=== PATIENT | male | born 1935 | race Caucasian/White ===

== ENCOUNTER 2017-05-12 06:39 | Emergency (ER) | payer MEDICARE, BC ==
[2017-05-12 07:02] VITALS: BP 173/84
[2017-05-12] MEDS ORDERED: Aspirin 81 MG Tab.Chew PO ONE (07:40)
[2017-05-12] MEDS ORDERED: Ondansetron 4 MG Tab.DIS PO ONE (07:43)
--- NOTE | 2017-05-12 07:44 | EDM.PDOC ---
ED HPI GENERAL MEDICAL PROBLEM - General Chief Complaint: Chest Pain Stated Complaint: STATES HE IS HAVING CHEST PAIN Time Seen by Provider: 05/12/17 07:36 Source of Information: Reports: Patient, Family, RN Notes Reviewed History Limitations: Reports: Physical Impairment - History of Present Illness INITIAL COMMENTS - FREE TEXT/NARRATIVE: 81-year-old gentleman presents emergency department today complaint of chest pain, he does have a history of Alzheimer's dementia difficult to obtain history from him discussing with the family they believe he was complaining of chest pain earlier this evening around 1:00 then went back to sleep again chest pain around 5 this morning he does feel nauseated no shortness of breath or diaphoresis - Related Data Allergies Allergy/AdvReac Type Severity Reaction Status Date / Time hydrocodone AdvReac Swelling Verified 05/12/17 07:05 Home Meds: Home Meds Digoxin 0.25 mg PO DAILY 09/08/13 [History] Pravastatin [Pravachol] 20 mg PO DAILY 09/08/13 [History] levETIRAcetam [Keppra] 500 mg PO BID 09/08/13 [History] Donepezil [Aricept] 5 mg PO BEDTIME 09/06/15 [History] Tamsulosin [Flomax] 0.4 mg PO BEDTIME 09/06/15 [History] Aspirin [Halfprin] 81 mg PO DAILY 02/12/16 [History] Loratadine 10 mg PO DAILY 05/12/17 [History] risperiDONE 0.5 mg PO BID PRN 05/12/17 [History] traZODone 200 mg PO BEDTIME 05/12/17 [History] Past Medical History HEENT History: Reports: Allergic Rhinitis Cardiovascular History: Reports: Arrhythmia, Pacemaker, Other (See Below) Other Cardiovascular History: high triglycerides Genitourinary History: Reports: Prostate Disorder Musculoskeletal History: Reports: Fracture Neurological History: Reports: Alzheimers Disease, Seizure Psychiatric History: Reports: Alzheimers Disease, Dementia Endocrine/Metabolic History: Reports: Diabetes, Type II Oncologic (Cancer) History: Reports: Other (See Below) Other Oncologic History: precancerous skin cells - Infectious Disease History Infectious Disease History: Reports: Chicken Pox, Measles, Mumps - Past Surgical History Cardiovascular Surgical History: Reports: Pacer Social & Family History - Tobacco Use Smoking Status *Q: Never Smoker Years of Tobacco use: 30 Used Tobacco, but Quit: Yes Month Tobacco Last Used: 1983 Second Hand Smoke Exposure: No - Caffeine Use Caffeine Use: Reports: None - Alcohol Use Days Per Week of Alcohol Use: 4 Number of Drinks Per Day: 1 Total Drinks Per Week: 4 - Recreational Drug Use Recreational Drug Use: No ED ROS GENERAL - Review of Systems Review Of Systems: Unable To Obtain ED EXAM, GENERAL - Physical Exam Exam: See Below Exam Limited By: Physical Impairment General Appearance: Alert, No Apparent Distress Head: Atraumatic, Normocephalic Neck: Normal Inspection, Supple, Non-Tender, Full Range of Motion Respiratory/Chest: No Respiratory Distress, Lungs Clear, Normal Breath Sounds, No Accessory Muscle Use Cardiovascular: Regular Rate, Rhythm, No Murmur GI/Abdominal: Soft, Non-Tender Extremities: No Pedal Edema Course - Vital Signs Last Recorded V/S: Last Vital Signs Temp 95.2 F L 05/12/17 07:00 Pulse 84 05/12/17 07:00 Resp 15 05/12/17 07:00 BP 173/84 H 05/12/17 07:00 Pulse Ox 96 05/12/17 07:00 - Orders/Labs/Meds Orders: Active Orders 24 hr Category Date Time Status Cardiac Monitoring [RC] .As Directed Care 05/12/17 07:40 Active EKG Documentation Completion [RC] ASDIRECTED Care 05/12/17 07:37 Active EKG 12 Lead [EK] Routine Ther 05/12/17 07:37 Ordered Labs: Laboratory Tests 05/12/17 05/12/17 05/12/17 Range/Units 07:46 07:46 07:46 WBC 5.7 (4.5-11.0) K/uL RBC 4.52 (4.30-5.90) M/uL Hgb 13.6 (12.0-15.0) g/dL Hct 39.0 L (40.0-54.0) % MCV 86 (80-98) fL MCH 30 (27-31) pg MCHC 35 (32-36) % Plt Count 103 L (150-400) K/uL Neut % (Auto) 60 (36-66) % Lymph % (Auto) 24 (24-44) % [place] % (Auto) 15 H (2-6) % Eos % (Auto) 0 L (2-4) % Baso % (Auto) 0 (0-1) % Sodium 140 (140-148) mmol/L Potassium 4.0 (3.6-5.2) mmol/L Chloride 102 (100-108) mmol/L Carbon Dioxide 29 (21-32) mmol/L Anion Gap 8.8 (5.0-14.0) mmol/L BUN 17 (7-18) mg/dL Creatinine 1.4 H (0.8-1.3) mg/dL Est Cr Clr Drug Dosing 42.74 mL/min Estimated GFR (MDRD) 49 L (>60) Glucose 142 H (74-106) mg/dL Calcium 9.2 (8.5-10.1) mg/dL Total Bilirubin 0.9 D (0.2-1.0) mg/dL AST 26 (15-37) U/L ALT 31 (12-78) U/L Alkaline Phosphatase 83 (46-116) U/L CK-MB (CK-2) 2.3 (0-3.6) mg/mL Troponin I 0.019 (0.000-0.056) ng/mL Total Protein 7.9 (6.4-8.2) g/dL Albumin 4.4 (3.4-5.0) g/dL Globulin 3.5 (2.3-3.5) g/dL Albumin/Globulin Ratio 1.3 (1.2-2.2) Meds: Medications Discontinued Medications Generic Name Dose Route Start Last Admin Trade Name Freq PRN Reason Stop Dose Admin Aspirin 324 mg 05/12/17 07:40 05/12/17 08:23 Aspirin PO 05/12/17 07:41 324 mg ONETIME ONE Administration Ondansetron HCl 4 mg 05/12/17 07:43 05/12/17 08:24 Zofran Odt PO 05/12/17 07:44 4 mg ONETIME ONE Administration Departure - Departure Time of Disposition: 10:14 Disposition: Home, Self-Care 01 Condition: Poor Clinical Impression: Atypical chest pain Dementia with behavioral problem Qualifiers: Dementia type: unspecified type Qualified Code(s): F03.91 - Unspecified dementia with behavioral disturbance Referrals: Bryan Lamb MD [Primary Care Provider] - Forms: ED Department Discharge Additional Instructions: Try the Ativan as needed for agitation, please follow-up with your primary care provider next 3-5 days for reevaluation, continue to work with [facility] case management social worker - My Orders Last 24 Hours: My Active Orders 05/12/17 07:40 Cardiac Monitoring [RC] .As Directed - Assessment/Plan Last 24 Hours: My Active Orders 05/12/17 07:40 Cardiac Monitoring [RC] .As Directed Plan: Assessment Acuity = acute Site and laterality = atypical chest pain complicated in a gentleman with history of Alzheimer's disease with behavioral component Etiology = unclear etiology Manifestations = none Location of injury = Home Lab values = CBC unremarkable, creatinine elevated 1.4 consistent with chronic renal failure stage GIIIA, chest x-ray no acute process EKG is paced Plan I did discuss options with them the biggest issue is behavioral concerns there going to take him home start working with the [facility] to try and find placement long-term senior behavioral health, in the meantime prescription written for Ativan 1 mg by mouth 3 times a day when necessary to help with agitation, recommend follow-up with primary care the next 3-5 days for reevaluation This note was dictated using [employer] voice recognition software please call with any questions on syntax or corrina.
--- NOTE | 2017-05-12 08:45 | CR ---
Findings: Heart size within normal limits. Cardiac pacer. No focal consolidation. Right apical pleura l thickening. Emphysematous change. No focal consolidation.
== END 2017-05-12 10:45 | disposition home or self-care (01) ==
LOC: JP.ED 06:39
DX: G30.9 Alzheimer's disease, unspecified (principal); F02.81 Dementia in other diseases classified elsewhere, unspecified severity, with behavioral disturbance; E11.9 Type 2 diabetes mellitus without complications; Z79.82 Long term (current) use of aspirin; Z79.899 Other long term (current) drug therapy; Z87.891 Personal history of nicotine dependence; Z88.5 Allergy status to narcotic agent
CPT/HCPCS: 36415; 71046; 71046-26; 80053; 82553; 84484; 85025; 93005; 99284; 99285-25; A9270-GY

== ENCOUNTER 2017-10-28 07:30 | Inpatient (IN) | payer MEDICARE, BC ==
--- NOTE | 2017-10-28 08:28 | EDM.PDOC ---
ED HPI GENERAL MEDICAL PROBLEM - General Chief Complaint: General Stated Complaint: WEAKNESS Time Seen by Provider: 10/28/17 08:15 Source of Information: Reports: Patient, Family, RN Notes Reviewed History Limitations: Reports: Physical Impairment - History of Present Illness INITIAL COMMENTS - FREE TEXT/NARRATIVE: 82-year-old gentleman presents to the emergency department today via EMS services for multiple recent falls, he does have a known history of Alzheimer's dementia does admit that he has had increasing violent behavior and has been difficult to control at home. - Related Data Allergies Allergy/AdvReac Type Severity Reaction Status Date / Time hydrocodone AdvReac Swelling Verified 10/28/17 07:56 Home Meds: Home Meds Digoxin 0.25 mg PO DAILY 09/08/13 [History] Donepezil [Aricept] 5 mg PO BEDTIME 09/06/15 [History] Tamsulosin [Flomax] 0.4 mg PO BEDTIME 09/06/15 [History] Aspirin [Halfprin] 81 mg PO DAILY 02/12/16 [History] risperiDONE 0.5 mg PO BID PRN 05/12/17 [History] traZODone 100 mg PO BEDTIME 05/12/17 [History] Divalproex Sodium [Depakote] 250 mg PO BEDTIME 10/28/17 [History] Docusate Sodium [Colace] 100 mg PO DAILY 10/28/17 [History] Gabapentin [Neurontin] 100 mg PO BEDTIME 10/28/17 [History] Past Medical History HEENT History: Reports: Allergic Rhinitis, Impaired Vision Cardiovascular History: Reports: Arrhythmia, Pacemaker, Other (See Below) Other Cardiovascular History: high triglycerides Gastrointestinal History: Reports: Chronic Constipation Genitourinary History: Reports: Prostate Disorder Musculoskeletal History: Reports: Fracture Neurological History: Reports: Alzheimers Disease, Seizure Other Neuro History: last seizure 2005 Psychiatric History: Reports: Alzheimers Disease, Anxiety, Dementia, Other ( See Below) Other Psychiatric History: sun downers, gets angry easily Endocrine/Metabolic History: Reports: Diabetes, Type II Hematologic History: Reports: Anemia Oncologic (Cancer) History: Reports: Other (See Below) Other Oncologic History: precancerous skin cells - Infectious Disease History 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 - Past Surgical History Head Surgeries/Procedures: Reports: None Cardiovascular Surgical History: Reports: Pacer GI Surgical History: Reports: None Endocrine Surgical History: Reports: None Neurological Surgical History: Reports: None Musculoskeletal Surgical History: Reports: None Oncologic Surgical History: Reports: None Dermatological Surgical History: Reports: None Social & Family History - Tobacco Use Smoking Status *Q: Former Smoker Used Tobacco, but Quit: Yes Month/Year Tobacco Last Used: 1984 Second Hand Smoke Exposure: No - Caffeine Use Caffeine Use: Reports: Coffee, Soda - Recreational Drug Use Recreational Drug Use: No ED ROS GENERAL - Review of Systems Review Of Systems: Unable To Obtain ED EXAM, GENERAL - Physical Exam Exam: See Below Free Text/Narrative:: General: Male, not in any distress, alert difficult to follow his speech HEENT: head is atraumatic normocephalic, eyes pupils equal round reactive to light, sclera clear no conjunctivitis appreciated. Ears blocked by cerumen bilaterally. Nose no septal deviation, nares are clear, no blood present. Mouth mucosa is moist and pink no erythema or exudate noted in soft palate, tongue is midline uvula is midline, dentition is intact. Neck: Supple no thyromegaly no tracheal deviation. Nodes: Cervical nodes subclavicular nodes nontender no palpable lymphadenopathy noted. Lungs: clear to auscultation bilaterally with symmetrical respirations, no adventitious noise appreciated. CV: Regular rate and rhythm S1 and S2 appreciated no murmurs rubs or gallops noted. Abdomen: Soft, nontender, no palpable masses or organomegaly appreciated, no distention no guarding bowel sounds are present, . Neuro: Cranial nerves II through XII grossly intact Skin: Warm and dry, intact Extremities: No lower extremity edema appreciated, pedal pulse is +2. No tenderness to shoulders elbows wrists bilaterally pelvic rock's is negative no tenderness to knees or ankles bilaterally Course - Vital Signs Last Recorded V/S: Last Vital Signs Temp 96.8 F 10/28/17 07:52 Pulse 88 10/28/17 07:52 Resp 16 10/28/17 07:52 BP 127/83 10/28/17 07:52 Pulse Ox 97 10/28/17 07:52 - Orders/Labs/Meds Orders: Active Orders 24 hr Category Date Time Status Peripheral IV Care [RC] . DIRECTED Care 10/28/17 09:25 Active Chest 1V Frontal [CR] Urgent Exams 10/28/17 08:24 Taken UA W/MICROSCOPIC [URIN] Stat Lab 10/28/17 09:06 Ordered Lactated Ringers [Ringers, Lactated] 1,000 ml Med 10/28/17 09:25 Active IV BOLUS Sodium Chloride 0.9% [Saline Flush] Med 10/28/17 09:25 Active 10 ml FLUSH ASDIRECTED PRN Peripheral IV Insertion Adult [OM.PC] Urgent Oth 10/28/17 09:25 Ordered Medication Orders Lactated Ringer's (Ringers, Lactated) 1,000 mls @ 999 mls/hr IV BOLUS ONE Stop: 10/28/17 10:25 Last Admin: 10/28/17 09:42 Dose: 999 mls/hr Sodium Chloride (Saline Flush) 10 ml FLUSH ASDIRECTED PRN PRN Reason: Keep Vein Open Last Admin: 10/28/17 09:39 Dose: 10 ml Labs: Laboratory Tests 10/28/17 10/28/17 10/28/17 Range/Units 08:34 08:34 08:34 WBC 7.2 (4.5-11.0) K/uL RBC 4.09 L (4.30-5.90) M/uL Hgb 11.9 L (12.0-15.0) g/dL Hct 35.4 L (40.0-54.0) % MCV 87 (80-98) fL MCH 29 (27-31) pg MCHC 34 (32-36) % Plt Count 105 L (150-400) K/uL Neut % (Auto) 71 H (36-66) % Lymph % (Auto) 13 L (24-44) % [place] % (Auto) 16 H (2-6) % Eos % (Auto) 0 L (2-4) % Baso % (Auto) 0 (0-1) % Sodium 139 L (140-148) mmol/L Potassium 3.9 (3.6-5.2) mmol/L Chloride 100 (100-108) mmol/L Carbon Dioxide 29 (21-32) mmol/L Anion Gap 13.9 (5.0-14.0) mmol/L BUN 22 H (7-18) mg/dL Creatinine 1.3 (0.8-1.3) mg/dL Est Cr Clr Drug Dosing 46.04 mL/min Estimated GFR (MDRD) 53 L (>60) Glucose 128 H (74-106) mg/dL Lactic Acid (0.4-2.0) mmol/L Calcium 8.9 (8.5-10.1) mg/dL Total Bilirubin 1.0 (0.2-1.0) mg/dL AST 84 H D (15-37) U/L ALT 33 (12-78) U/L Alkaline Phosphatase 66 (46-116) U/L Creatine Kinase 3222 H (39-308) U/L Total Protein 6.7 (6.4-8.2) g/dL Albumin 3.5 (3.4-5.0) g/dL Globulin 3.2 (2.3-3.5) g/dL Albumin/Globulin Ratio 1.1 L (1.2-2.2) Urine Color Urine Appearance Urine pH (4.5-8.0) Ur Specific [place] (1.008-1.030) Urine Protein (NEGATIVE) mg/dL Urine Glucose (UA) (NEGATIVE) mg/dL Urine Ketones (NEGATIVE) mg/dL Urine Occult Blood (NEGATIVE) Urine Nitrite (NEGAITVE) Urine Bilirubin (NEGATIVE) Urine Urobilinogen (NORMAL) mg/dL Ur Leukocyte Esterase (NEGATIVE) Urine RBC (0-5) Urine WBC (0-5) Ur Epithelial Cells Amorphous Sediment Urine Bacteria Urine Mucus Digoxin (0.90-2.00) ng/mL 10/28/17 10/28/17 10/28/17 Range/Units 08:34 09:06 09:25 WBC (4.5-11.0) K/uL RBC (4.30-5.90) M/uL Hgb (12.0-15.0) g/dL Hct (40.0-54.0) % MCV (80-98) fL MCH (27-31) pg MCHC (32-36) % Plt Count (150-400) K/uL Neut % (Auto) (36-66) % Lymph % (Auto) (24-44) % [place] % (Auto) (2-6) % Eos % (Auto) (2-4) % Baso % (Auto) (0-1) % Sodium (140-148) mmol/L Potassium (3.6-5.2) mmol/L Chloride (100-108) mmol/L Carbon Dioxide (21-32) mmol/L Anion Gap (5.0-14.0) mmol/L BUN (7-18) mg/dL Creatinine (0.8-1.3) mg/dL Est Cr Clr Drug Dosing mL/min Estimated GFR (MDRD) (>60) Glucose (74-106) mg/dL Lactic Acid 1.9 (0.4-2.0) mmol/L Calcium (8.5-10.1) mg/dL Total Bilirubin (0.2-1.0) mg/dL AST (15-37) U/L ALT (12-78) U/L Alkaline Phosphatase (46-116) U/L Creatine Kinase (39-308) U/L Total Protein (6.4-8.2) g/dL Albumin (3.4-5.0) g/dL Globulin (2.3-3.5) g/dL Albumin/Globulin Ratio (1.2-2.2) Urine Color Other Urine Appearance Slightly cloudy Urine pH 5.0 (4.5-8.0) Ur Specific [place] 1.025 (1.008-1.030) Urine Protein 30 H (NEGATIVE) mg/dL Urine Glucose (UA) 50 H (NEGATIVE) mg/dL Urine Ketones 15 H (NEGATIVE) mg/dL Urine Occult Blood Moderate (NEGATIVE) Urine Nitrite Negative (NEGAITVE) Urine Bilirubin Small (NEGATIVE) Urine Urobilinogen 4 (NORMAL) mg/dL Ur Leukocyte Esterase Negative (NEGATIVE) Urine RBC 0-5 (0-5) Urine WBC Not seen (0-5) Ur Epithelial Cells Not seen Amorphous Sediment Not seen Urine Bacteria Rare Urine Mucus Moderate Digoxin 1.57 (0.90-2.00) ng/mL Meds: Medications Generic Name Dose Route Start Last Admin Trade Name Freq PRN Reason Stop Dose Admin Lactated Ringer's 1,000 mls @ 999 mls/hr 10/28/17 09:25 10/28/17 09:42 Ringers, Lactated IV 10/28/17 10:25 999 mls/hr BOLUS ONE Administration Sodium Chloride 10 ml 10/28/17 09:25 10/28/17 09:39 Saline Flush FLUSH 10 ml ASDIRECTED PRN Administration Keep Vein Open Departure - Departure Time of Disposition: 10:20 Disposition: Admitted As Inpatient 66 Condition: Poor Clinical Impression: Dementia with behavioral problem Qualifiers: Dementia type: unspecified type Qualified Code(s): F03.91 - Unspecified dementia with behavioral disturbance Rhabdomyolysis Qualifiers: Rhabdomyolysis type: traumatic Encounter type: initial encounter Qualified Code (s): T79.6XXA - Traumatic ischemia of muscle, initial encounter - Discharge Information Referrals: Bryan Lamb MD [Primary Care Provider] - Forms: ED Department Discharge - My Orders Last 24 Hours: My Active Orders 10/28/17 08:24 Chest 1V Frontal [CR] Urgent 10/28/17 09:06 UA W/MICROSCOPIC [URIN] Stat 10/28/17 09:25 Peripheral IV Care [RC] . DIRECTED Lactated Ringers [Ringers, Lactated] 1,000 ml IV BOLUS Sodium Chloride 0.9% [Saline Flush] 10 ml FLUSH ASDIRECTED PRN Peripheral IV Insertion Adult [OM.PC] Urgent - Assessment/Plan Last 24 Hours: My Active Orders 10/28/17 08:24 Chest 1V Frontal [CR] Urgent 10/28/17 09:06 UA W/MICROSCOPIC [URIN] Stat 10/28/17 09:25 Peripheral IV Care [RC] . DIRECTED Lactated Ringers [Ringers, Lactated] 1,000 ml IV BOLUS Sodium Chloride 0.9% [Saline Flush] 10 ml FLUSH ASDIRECTED PRN Peripheral IV Insertion Adult [OM.PC] Urgent Plan: Assessment Acuity = acute Site and laterality = rhabdomyolysis complicated patient with known history of Alzheimer's dementia Etiology = unclear etiology Manifestations = generalized weakness Location of injury = Home Lab values = hemoglobin low 11.9 consistent normochromic anemia, lactic acid normal at 1.9 CMP unremarkable, CK-MB elevated 3222, urinalysis reveals a specific gravity 1.025 consistent with intravascular volume depletion, urine protein at 30 consistent proteinuria, urine glucose at 50 consistent glucose urea, ketones at 15 consistent ketonuria, digoxin normal at 1.57, chest x-ray I did review films myself I cannot appreciate any acute process, the official read from radiology is pending Plan Called discussed case hospitalist continuous process machine operator he agreed, and evaluate the patient emergency department for admission This note was dictated using [employer] voice recognition software please call with any questions on syntax or grammar.
[2017-10-28] MEDS ORDERED: Lactated Ringers 1,000 ML IV ONE ×2 (09:25→10:48)
[2017-10-28] MEDS ORDERED: Sodium Chloride 0.9% 10 ML Syringe FLUSH PRN (09:25)
--- NOTE | 2017-10-28 11:42 | PCM.HP ---
H&P History of Present Illness - General Date of Service: 10/28/17 Admit Problem/Dx: Admission Diagnosis/Problem Admission Diagnosis/Problem Rhabdomyolysis Source of Information: Patient, Family, Provider History Limitations: Reports: Altered Mental Status (severe dementia) - History of Present Illness Initial Comments - Free Text/Narative: Román presents to the emergency room today with a combination of weakness as well as intermittent agitation. His history is very difficult to obtain because of his severe dementia so history is gathered from his . She reports that he sleeps in a recliner and fell out of the recliner at some point. He was too weak to get off the floor but was able to crawl around sustaining some abrasions to his knees. Because he was too weak to get off the floor she called 911 for assistance. He is also been having increased difficulty with agitation and even some violent agitation. She feels that she's not able to take care of him at home anymore because of his increasing aggressiveness and worsening dementia further complicated by his increasing weakness. He is currently complaining of some discomfort in his backside but is unable to further characterize or described his pain because of his dementia. He says it hurts. His has not noticed change in bowel or bladder function. He has not been eating well at home but did have a good breakfast. Workup in the emergency room most notable for a CK level of more than 3000. He will be admitted for management of rhabdomyolysis. - Related Data Allergies/Adverse Reactions: Allergies Allergy/AdvReac Type Severity Reaction Status Date / Time hydrocodone AdvReac Swelling Verified 10/28/17 07:56 Home Medications: Home Meds Digoxin 0.25 mg PO DAILY 09/08/13 [History] Donepezil [Aricept] 5 mg PO BEDTIME 09/06/15 [History] Tamsulosin [Flomax] 0.4 mg PO BEDTIME 09/06/15 [History] Aspirin [Halfprin] 81 mg PO DAILY 02/12/16 [History] risperiDONE 0.5 mg PO BID PRN 05/12/17 [History] traZODone 100 mg PO BEDTIME 05/12/17 [History] Divalproex Sodium [Depakote] 250 mg PO BEDTIME 10/28/17 [History] Docusate Sodium [Colace] 100 mg PO DAILY 10/28/17 [History] Gabapentin [Neurontin] 100 mg PO BEDTIME 10/28/17 [History] Past Medical History HEENT History: Reports: Allergic Rhinitis, Impaired Vision Cardiovascular History: Reports: Arrhythmia, Pacemaker, Other (See Below) Other Cardiovascular History: high triglycerides Gastrointestinal History: Reports: Chronic Constipation Genitourinary History: Reports: Prostate Disorder Musculoskeletal History: Reports: Fracture Neurological History: Reports: Alzheimers Disease, Seizure Other Neuro History: last seizure 2005 Psychiatric History: Reports: Alzheimers Disease, Anxiety, Dementia, Other ( See Below) Other Psychiatric History: sun downers, gets angry easily Endocrine/Metabolic History: Reports: Diabetes, Type II Hematologic History: Reports: Anemia Oncologic (Cancer) History: Reports: Other (See Below) Other Oncologic History: precancerous skin cells - Infectious Disease History 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 - Past Surgical History Head Surgeries/Procedures: Reports: None Cardiovascular Surgical History: Reports: Pacer GI Surgical History: Reports: None Endocrine Surgical History: Reports: None Neurological Surgical History: Reports: None Musculoskeletal Surgical History: Reports: None Oncologic Surgical History: Reports: None Dermatological Surgical History: Reports: None Social & Family History - Family History Cardiac: Denies: CAD - Tobacco Use Smoking Status *Q: Former Smoker Used Tobacco, but Quit: Yes Month/Year Tobacco Last Used: 1984 Second Hand Smoke Exposure: No - Caffeine Use Caffeine Use: Reports: Coffee, Soda - Alcohol Use Alcohol Use History: No - Recreational Drug Use Recreational Drug Use: No H&P Review of Systems - Review of Systems: Review Of Systems: Unable To Obtain (severe dementia) Exam - Exam Exam: See Below - Vital Signs Vital Signs: Last Vital Signs Temp 36.0 C 10/28/17 07:52 Pulse 88 10/28/17 07:52 Resp 16 10/28/17 07:52 BP 127/83 10/28/17 07:52 Pulse Ox 97 10/28/17 07:52 Weight: 74.3 kg - Exam Quality Assessment: No: Supplemental Oxygen General: Alert, Cooperative. No: Oriented, Mild Distress HEENT: Conjunctiva Clear, Mucosa Moist & [place]. No: Scleral Icterus Neck: Supple, Trachea Midline. No: Lymphadenopathy, Thyromegaly Lungs: Clear to Auscultation, Normal Respiratory Effort Cardiovascular: Regular Rate, Regular Rhythm, Systolic Murmur GI/Abdominal Exam: Normal Bowel Sounds, Soft, Non-Tender, No Distention Back Exam: Normal Inspection, Full Range of Motion Extremities: Pedal Edema. No: Increased Warmth Peripheral Pulses: 2+: Dorsalis Pedis (L), Dorsalis Pedis (R) Skin: Warm, Dry, Rash (mild abrasions both knees and small abrasion right anterior ibrahim) Neuro Extensive - Mental Status: Alert, Slow Response to Commands. No: Oriented x3 Neuro Extensive - Motor, Sensory, Reflexes: CN II-XII Intact. No: Dysarthria, Abnormal Motor, Tremor Psychiatric: Alert. No: Agitated - Patient Data Lab Results Last 24 hrs: Laboratory Results - last 24 hr 10/28/17 10/28/17 10/28/17 Range/Units 08:34 08:34 08:34 WBC 7.2 (4.5-11.0) K/uL RBC 4.09 L (4.30-5.90) M/uL Hgb 11.9 L (12.0-15.0) g/dL Hct 35.4 L (40.0-54.0) % MCV 87 (80-98) fL MCH 29 (27-31) pg MCHC 34 (32-36) % Plt Count 105 L (150-400) K/uL Neut % (Auto) 71 H (36-66) % Lymph % (Auto) 13 L (24-44) % [place] % (Auto) 16 H (2-6) % Eos % (Auto) 0 L (2-4) % Baso % (Auto) 0 (0-1) % Sodium 139 L (140-148) mmol/L Potassium 3.9 (3.6-5.2) mmol/L Chloride 100 (100-108) mmol/L Carbon Dioxide 29 (21-32) mmol/L Anion Gap 13.9 (5.0-14.0) mmol/L BUN 22 H (7-18) mg/dL Creatinine 1.3 (0.8-1.3) mg/dL Est Cr Clr Drug Dosing 46.04 mL/min Estimated GFR (MDRD) 53 L (>60) Glucose 128 H (74-106) mg/dL Lactic Acid (0.4-2.0) mmol/L Calcium 8.9 (8.5-10.1) mg/dL Total Bilirubin 1.0 (0.2-1.0) mg/dL AST 84 H D (15-37) U/L ALT 33 (12-78) U/L Alkaline Phosphatase 66 (46-116) U/L Creatine Kinase 3222 H (39-308) U/L Total Protein 6.7 (6.4-8.2) g/dL Albumin 3.5 (3.4-5.0) g/dL Globulin 3.2 (2.3-3.5) g/dL Albumin/Globulin Ratio 1.1 L (1.2-2.2) Urine Color Urine Appearance Urine pH (4.5-8.0) Ur Specific [place] (1.008-1.030) Urine Protein (NEGATIVE) mg/dL Urine Glucose (UA) (NEGATIVE) mg/dL Urine Ketones (NEGATIVE) mg/dL Urine Occult Blood (NEGATIVE) Urine Nitrite (NEGAITVE) Urine Bilirubin (NEGATIVE) Urine Urobilinogen (NORMAL) mg/dL Ur Leukocyte Esterase (NEGATIVE) Urine RBC (0-5) Urine WBC (0-5) Ur Epithelial Cells Amorphous Sediment Urine Bacteria Urine Mucus Digoxin (0.90-2.00) ng/mL 10/28/17 10/28/17 10/28/17 Range/Units 08:34 09:06 09:25 WBC (4.5-11.0) K/uL RBC (4.30-5.90) M/uL Hgb (12.0-15.0) g/dL Hct (40.0-54.0) % MCV (80-98) fL MCH (27-31) pg MCHC (32-36) % Plt Count (150-400) K/uL Neut % (Auto) (36-66) % Lymph % (Auto) (24-44) % [place] % (Auto) (2-6) % Eos % (Auto) (2-4) % Baso % (Auto) (0-1) % Sodium (140-148) mmol/L Potassium (3.6-5.2) mmol/L Chloride (100-108) mmol/L Carbon Dioxide (21-32) mmol/L Anion Gap (5.0-14.0) mmol/L BUN (7-18) mg/dL Creatinine (0.8-1.3) mg/dL Est Cr Clr Drug Dosing mL/min Estimated GFR (MDRD) (>60) Glucose (74-106) mg/dL Lactic Acid 1.9 (0.4-2.0) mmol/L Calcium (8.5-10.1) mg/dL Total Bilirubin (0.2-1.0) mg/dL AST (15-37) U/L ALT (12-78) U/L Alkaline Phosphatase (46-116) U/L Creatine Kinase (39-308) U/L Total Protein (6.4-8.2) g/dL Albumin (3.4-5.0) g/dL Globulin (2.3-3.5) g/dL Albumin/Globulin Ratio (1.2-2.2) Urine Color Other Urine Appearance Slightly cloudy Urine pH 5.0 (4.5-8.0) Ur Specific [place] 1.025 (1.008-1.030) Urine Protein 30 H (NEGATIVE) mg/dL Urine Glucose (UA) 50 H (NEGATIVE) mg/dL Urine Ketones 15 H (NEGATIVE) mg/dL Urine Occult Blood Moderate (NEGATIVE) Urine Nitrite Negative (NEGAITVE) Urine Bilirubin Small (NEGATIVE) Urine Urobilinogen 4 (NORMAL) mg/dL Ur Leukocyte Esterase Negative (NEGATIVE) Urine RBC 0-5 (0-5) Urine WBC Not seen (0-5) Ur Epithelial Cells Not seen Amorphous Sediment Not seen Urine Bacteria Rare Urine Mucus Moderate Digoxin 1.57 (0.90-2.00) ng/mL Result Diagrams: 10/28/17 08:34 18 08:34 Imaging Impressions Last 24 hrs: CXR - images personally reviewed - lungs are clear with no mass, infiltrate or effusion *Q Meaningful Use (ADM) - VTE Risk Assess *Q Each Risk Factor Represents 1 Point: None Total Score 1 Point Risk Factors: 0 Each Risk Factor Represents 2 Points: None Total Score 2 Point Risk Factors: 0 Each Risk Factor Represents 3 Points: Age 75 Years or Greater Total Score 3 Point Risk Factors: 3 Each Risk Factor Represents 5 Points: None Total Score 5 Point Risk Factors: 0 Venous Thromboembolism Risk Factor Score *Q: 3 - Problem List (1) Rhabdomyolysis SNOMED Code(s): 610549959 ICD Code: M62.82 - RHABDOMYOLYSIS Status: Acute Current Visit: Yes Qualifiers: Rhabdomyolysis type: traumatic Encounter type: initial encounter Qualified Code(s): T79.6XXA - Traumatic ischemia of muscle, initial encounter (2) Dementia with behavioral problem SNOMED Code(s): 7737743254096 ICD Code: F03.91 - UNSPECIFIED DEMENTIA WITH BEHAVIORAL DISTURBANCE Status : Chronic Current Visit: Yes Qualifiers: Dementia type: unspecified type Qualified Code(s): F03.91 - Unspecified dementia with behavioral disturbance Problem List Initiated/Reviewed/Updated: Yes Orders Last 24hrs: Active Orders 24 hr Category Date Time Status Patient Status Manage Transfer [TRANSFER] Routine ADT 10/28/17 11:31 Ordered Peripheral IV Care [RC] . DIRECTED Care 10/28/17 09:25 Active Chest 1V Frontal [CR] Urgent Exams 10/28/17 08:24 Taken UA W/MICROSCOPIC [URIN] Stat Lab 10/28/17 09:06 Ordered Lactated Ringers [Ringers, Lactated] 1,000 ml Med 10/28/17 10:48 Active IV BOLUS Sodium Chloride 0.9% [Saline Flush] Med 10/28/17 09:25 Active 10 ml FLUSH ASDIRECTED PRN Peripheral IV Insertion Adult [OM.PC] Urgent Oth 10/28/17 09:25 Ordered Resuscitation Status Routine Resus Stat 10/28/17 11:34 Ordered Medication Orders Lactated Ringer's (Ringers, Lactated) 1,000 mls @ 999 mls/hr IV BOLUS ONE Stop: 10/28/17 11:48 Last Admin: 10/28/17 10:52 Dose: 999 mls/hr Sodium Chloride (Saline Flush) 10 ml FLUSH ASDIRECTED PRN PRN Reason: Keep Vein Open Last Admin: 10/28/17 09:39 Dose: 10 ml Assessment/Plan Comment:: ASSESSMENT AND PLAN - Acute traumatic rhabdomyolysis - patient spent an unknown time on the floor likely several hours. CK level more than 3000. -IV fluids -Repeat CK level in the morning -Physical therapy to help with weakness Advanced Alzheimer's dementia with behavioral disturbance - increasing aggressiveness and even violent behavior at home. His feels that she is not able to take care of him any longer. I don't see any evidence for infection to suggest changes in his behaviors. -Continue twice daily Risperidone -Increase Depakote to 3 times a day -Melatonin at bedtime -Continue trazodone at bedtime -consider senior behavior unit if we are unable to improve behaviors Maintenance issues - - DVT prophylaxis - mechanical - GI prophylaxis - not indicated - Nutrition - regular diet - Zamora catheter - not indicated CODE STATUS - DNR/DNI, discussed with his and she did review his advanced directive Admission justification - This patient will be admitted for inpatient services and is medically appropriate meeting medical necessity for inpatient admission as outlined in my documentation. I reasonably expect the patient will require inpatient services that span a period time over 2 midnights. I reasonably expect this patient to be discharged or transferred within 96 hours after admission to the [facility]. Disposition - anticipate discharge to [facility] or possibly senior behavior unit after the hospital stay Primary care physician - Dr Kristian Prescott M.D.
--- NOTE | 2017-10-28 13:17 | CR ---
Portable chest April 2017. The cardiac pacemaker on the right is stable. There is hyperinflation. There are no infiltrates or ef fusions. Heart and vascular structures are within normal limits. There are calcified granulomas of th e right hilum. Impression: 1. Stable exam. No acute findings.
[2017-10-28] MEDS ORDERED: Polyethylene Glycol 3350 Powder 17 GM Packet PO PRN (14:08)
[2017-10-28] MEDS ORDERED: Ondansetron 4 MG Tab.DIS PO PRN (14:08)
[2017-10-28] MEDS: Sodium Chloride 0.9% 1,000 ML IV SCH ×2 (14:24→21:36)
[2017-10-28] MEDS ORDERED: risperiDONE 0.25 MG Tab PO SCH (16:00)
[2017-10-28] MEDS: Divalproex Sodium Delayed-Release 250 MG Tab.CR PO SCH ×2 (16:14→16:19)
[2017-10-28] MEDS: risperiDONE 0.5 MG Tab PO SCH ×2 (16:47→21:14)
[2017-10-28] MEDS ORDERED: Non-Formulary Medication 1 Each (Trazodone [Trazodone] 100 MG) PO SCH (21:00)
[2017-10-28] MEDS ORDERED: Non-Formulary Medication 1 Each (Donepezil [Aricept] 5 MG) PO SCH (21:00)
--- NOTE | 2017-10-28 21:05 | PCM.SN ---
- Free Text/Narrative Note: time 20:45 call from 2 [facility] S/O: Mr. Hou is restless, mild agitation, multi attempts to void, bladder scan residual greater than 550ml. A: restless secondary to urinary retention and dementia P: order Haldol 1 mg IV every 2 hours prn agitation/restlessness place amador cath for tonight, then re-assess in morning. continue present plan of care.
[2017-10-28] MEDS: Melatonin 3 MG Tab PO SCH (21:14)
[2017-10-28] MEDS: Gabapentin 100 MG Cap PO SCH (21:14)
[2017-10-28] MEDS: traZODone 50 MG Tab PO SCH (21:14)
[2017-10-28] MEDS: Donepezil 10 MG Tab PO SCH (21:15)
[2017-10-28] MEDS: Tamsulosin 0.4 MG Cap.ER PO SCH (21:19)
[2017-10-28] MEDS: Haloperidol Lactate 5 MG/ML SDV IVPUSH PRN (21:20)
[2017-10-28] MEDS ORDERED: Dimethicone 20%/Zinc Oxide 25% 56 GM Spray Bottle TOP PRN (22:38)
[2017-10-29] MEDS: Sodium Chloride 0.9% 1,000 ML IV SCH ×3 (05:40→20:49)
[2017-10-29] MEDS ORDERED: Non-Formulary Medication 1 Each (Digoxin [Digoxin] 0.25 MG) PO SCH (09:00)
[2017-10-29] MEDS: Divalproex Sodium Delayed-Release 250 MG Tab.CR PO SCH ×3 (10:13→16:01)
[2017-10-29] MEDS: Aspirin 81 MG Tab.EC PO SCH (10:16)
[2017-10-29] MEDS: Docusate Sodium 100 MG Cap PO SCH (10:29)
[2017-10-29] MEDS ORDERED: Glycopyrrolate 1 MG Tab PO PRN (14:32)
--- NOTE | 2017-10-29 14:34 | PCM.PN ---
- General Info Date of Service: 10/29/17 - Review of Systems General: Reports: Weakness. Denies: Fever Pulmonary: Reports: Cough Neurological: Reports: Confusion Psychiatric: Reports: Agitation Systems Review Comment:: patient had an episode of agitation overnight which responded nicely to Haldol. Slept fairly well after that time. This morning he is a little sleepy but does answer some questions. There is concern that he may have had an aspiration event at lunchtime. He does not participate much with answering questions. CK level has improved but remains elevated at 2400. patient did have some agitations morning and had a Zamora catheter placed with return of more than 1 L of fluid. - Patient Data Vitals - Most Recent: Last Vital Signs Temp 36.4 C 10/29/17 11:00 Pulse 78 10/29/17 11:00 Resp 16 10/29/17 11:00 BP 143/48 H 10/29/17 11:00 Pulse Ox 96 10/29/17 11:00 Weight - Most Recent: 74.3 kg I&O - Last 24 Hours: Intake & Output 10/28/17 10/29/17 10/29/17 22:59 06:59 14:59 Intake Total 500 1826 Output Total 2275 1050 Balance -1775 776 Lab Results Last 24 Hours: Laboratory Results - last 24 hr 10/29/17 10/29/17 Range/Units 05:50 05:50 WBC 7.0 (4.5-11.0) K/uL RBC 3.67 L (4.30-5.90) M/uL Hgb 10.7 L (12.0-15.0) g/dL Hct 31.8 L (40.0-54.0) % MCV 87 (80-98) fL MCH 29 (27-31) pg MCHC 34 (32-36) % Plt Count 97 L (150-400) K/uL Sodium 140 (140-148) mmol/L Potassium 3.6 (3.6-5.2) mmol/L Chloride 105 (100-108) mmol/L Carbon Dioxide 27 (21-32) mmol/L Anion Gap 7.6 (5.0-14.0) mmol/L BUN 13 (7-18) mg/dL Creatinine 1.1 (0.8-1.3) mg/dL Est Cr Clr Drug Dosing 54.41 mL/min Estimated GFR (MDRD) > 60 (>60) Glucose 121 H (74-106) mg/dL Calcium 8.3 L (8.5-10.1) mg/dL Creatine Kinase 2474 H (39-308) U/L Med Orders - Current: Current Medications Acetaminophen (Tylenol) 650 mg PO Q4H PRN PRN Reason: Pain (Mild 1-3)/fever Aspirin (Halfprin) 81 mg PO DAILY [facility] Last Admin: 10/29/17 10:16 Dose: 81 mg Digoxin (Lanoxin) 250 mcg PO DAILY@1300 [facility] Dimethicone/Zinc Oxide (Rash Relief-Zinc Oxide Kendall) 1 gm TOP ASDIRECTED PRN PRN Reason: Rash Divalproex Sodium (Divalproex Sodium) 250 mg PO TIDMEALS [facility] Last Admin: 10/29/17 10:13 Dose: 250 mg Docusate Sodium (Colace) 100 mg PO DAILY [facility] Last Admin: 10/29/17 10:29 Dose: Not Given Donepezil HCl (Aricept) 5 mg PO BEDTIME [facility] Last Admin: 10/28/17 21:15 Dose: 5 mg Gabapentin (Neurontin) 100 mg PO BEDTIME [facility] Last Admin: 10/28/17 21:14 Dose: 100 mg Haloperidol Lactate (Haldol) 1 mg IVPUSH Q2H PRN PRN Reason: Agitation Last Admin: 10/28/17 21:20 Dose: 1 mg Sodium Chloride (Normal Saline) 1,000 mls @ 125 mls/hr IV ASDIRECTED [facility] Last Admin: 10/29/17 13:38 Dose: 125 mls/hr Melatonin (Melatonin) 9 mg PO BEDTIME [facility] Last Admin: 10/28/17 21:14 Dose: 9 mg Ondansetron HCl (Zofran Odt) 4 mg PO Q6H PRN PRN Reason: Nausea able to take PO Polyethylene Glycol (Miralax) 17 gm PO DAILY PRN PRN Reason: Constipation Risperidone (Risperidal) 0.5 mg PO BID@1600,2100 [facility] Last Admin: 10/28/17 21:14 Dose: 0.5 mg Sodium Chloride (Saline Flush) 10 ml FLUSH ASDIRECTED PRN PRN Reason: Keep Vein Open Last Admin: 10/28/17 09:39 Dose: 10 ml Tamsulosin HCl (Flomax) 0.4 mg PO BEDTIME [facility] Last Admin: 10/28/17 21:19 Dose: 0.4 mg Trazodone HCl (Trazodone) 100 mg PO BEDTIME [facility] Last Admin: 10/28/17 21:14 Dose: 100 mg Discontinued Medications Lactated Ringer's (Ringers, Lactated) 1,000 mls @ 999 mls/hr IV BOLUS ONE Stop: 10/28/17 10:25 Last Admin: 10/28/17 09:42 Dose: 999 mls/hr Lactated Ringer's (Ringers, Lactated) 1,000 mls @ 999 mls/hr IV BOLUS ONE Stop: 10/28/17 11:48 Last Admin: 10/28/17 10:52 Dose: 999 mls/hr - Exam Quality Assessment: No: Supplemental Oxygen General: Alert, Cooperative, Mild Distress. No: Oriented Lungs: Normal Respiratory Effort, Decreased Breath Sounds (slightly decreased right lung base). No: Wheezing Cardiovascular: Regular Rate, Regular Rhythm GI/Abdominal Exam: Soft, No Distention Extremities: No Pedal Edema Skin: Warm, Dry Psy/Mental Status: Alert, Anxious - Problem List & Annotations (1) Rhabdomyolysis SNOMED Code(s): 431066635 Code(s): M62.82 - RHABDOMYOLYSIS Status: Acute Current Visit: Yes Qualifiers: Rhabdomyolysis type: traumatic Encounter type: initial encounter Qualified Code(s): T79.6XXA - Traumatic ischemia of muscle, initial encounter (2) Dementia with behavioral problem SNOMED Code(s): 0639480248235 Code(s): F03.91 - UNSPECIFIED DEMENTIA WITH BEHAVIORAL DISTURBANCE Status: Chronic Current Visit: Yes Qualifiers: Dementia type: unspecified type Qualified Code(s): F03.91 - Unspecified dementia with behavioral disturbance - Problem List Review Problem List Initiated/Reviewed/Updated: Yes - My Orders Last 24 Hours: My Active Orders 10/28/17 14:08 Patient Status [ADT] Routine Notify Provider Vital Signs [RC] ASDIRECTED Oxygen Therapy [RC] PRN Up With Assistance [RC] ASDIRECTED Up to Chair [RC] QID VTE/DVT Education [RC] Per Unit Routine Vital Signs [RC] Q4H Acetaminophen [Tylenol] 650 mg PO Q4H PRN Divalproex Sodium 250 mg PO TIDMEALS Ondansetron [Zofran ODT] 4 mg PO Q6H PRN Polyethylene Glycol 3350 [MiraLAX] 17 gm PO DAILY PRN Sodium Chloride 0.9% [Normal Saline] 1,000 ml IV ASDIRECTED Antiembolic Hose [OM.PC] Per Unit Routine Pressure Reduction Mattress [OM.PC] Routine 10/28/17 16:00 risperiDONE [RisperiDAL] 0.5 mg PO BID@1600,2100 10/28/17 21:00 Donepezil [Aricept] 5 mg PO BEDTIME Gabapentin [Neurontin] 100 mg PO BEDTIME Melatonin 9 mg PO BEDTIME Tamsulosin [Flomax] 0.4 mg PO BEDTIME traZODone 100 mg PO BEDTIME 10/28/17 22:38 Dimethicone/Zinc Oxide [Rash Relief-Zinc Oxide Kend[place]] 1 gm TOP ASDIRECTED PRN 10/29/17 07:00 PT Evaluation and Treatment [CONS] Routine 10/29/17 09:00 Aspirin [Halfprin] 81 mg PO DAILY Docusate Sodium [Colace] 100 mg PO DAILY 10/29/17 13:00 Digoxin [Lanoxin] 250 mcg PO DAILY@1300 10/29/17 14:31 CXR [Chest 1V Frontal] [CR] Routine 10/29/17 14:32 Glycopyrrolate [Robinul] 1 mg PO DAILY PRN 10/30/17 05:00 BASIC METABOLIC PANEL,BMP [CHEM] Timed CBC W/O DIFF,HEMOGRAM [HEME] Timed (1) CREATINE KINASE,CK [CHEM] Timed - Plan Plan:: ASSESSMENT AND PLAN - Acute traumatic rhabdomyolysis - creatinine level trending down but remains elevated. -IV fluids -Repeat CK level in the morning -Physical therapy to help with weakness Advanced Alzheimer's dementia with behavioral disturbance - difficulty with agitation overnight though seems sleepy and no behavior issue so far this morning. -Continue twice daily Risperidone -Increase Depakote to 3 times a day -Melatonin at bedtime -Continue trazodone at bedtime -consider senior behavior unit if we are unable to improve behaviors Maintenance issues - - DVT prophylaxis - mechanical - GI prophylaxis - not indicated - Nutrition - regular diet - Zamora catheter - placed this morning for urinary retention Disposition - anticipate discharge to detention or possibly senior behavior unit after the hospital stay Primary care physician - Dr Kristian Prescott M.D.
[2017-10-29] MEDS: Digoxin 125 MCG Tab PO SCH (15:12)
[2017-10-29] MEDS: risperiDONE 0.5 MG Tab PO SCH ×2 (16:01→20:49)
[2017-10-29] MEDS: Piperacillin/Tazobactam 3.375 GM in Sodium Chloride 0.9% 50 ML IV SCH (20:40)
[2017-10-29] MEDS: traZODone 50 MG Tab PO SCH (20:49)
[2017-10-29] MEDS: Melatonin 3 MG Tab PO SCH (20:49)
[2017-10-29] MEDS: Donepezil 10 MG Tab PO SCH (20:49)
[2017-10-29] MEDS: Gabapentin 100 MG Cap PO SCH (20:49)
[2017-10-29] MEDS: Tamsulosin 0.4 MG Cap.ER PO SCH (20:49)
[2017-10-29] MEDS: Acetaminophen 325 MG Tab PO PRN (20:57)
[2017-10-30] MEDS: Piperacillin/Tazobactam 3.375 GM in Sodium Chloride 0.9% 50 ML IV SCH (02:56)
[2017-10-30] MEDS: Sodium Chloride 0.9% 1,000 ML IV SCH ×2 (05:47→23:07)
[2017-10-30] MEDS: Piperacillin/Tazobactam/Dext 3.375 GM in Premix Bag 1 BAG IV SCH ×3 (08:41→20:09)
--- NOTE | 2017-10-30 10:07 | PCM.PN ---
- General Info Date of Service: 10/30/17 Functional Status: Reports: Pain Controlled - Review of Systems General: Reports: Fever Pulmonary: Reports: Cough Neurological: Reports: Confusion Systems Review Comment:: Overnight the patient developed a fever as well as worsening hypoxia. Antibiotics were initiated at the time of the fever with concern for aspiration pneumonia. This morning he is alert but not very interactive. He is sitting in the Antoinette chair and appears comfortable. He does not respond when asked questions about how he feels. CK level continues to trend down but has not normalized. - Patient Data Vitals - Most Recent: Last Vital Signs Temp 37.8 C 10/30/17 07:24 Pulse 80 10/30/17 07:24 Resp 16 10/30/17 07:24 BP 125/52 L 10/30/17 07:24 Pulse Ox 93 L 10/30/17 07:24 Weight - Most Recent: 74.3 kg I&O - Last 24 Hours: Intake & Output 10/29/17 10/30/17 10/30/17 22:59 06:59 14:59 Intake Total 1559 1475 50 Output Total 800 375 Balance 759 1100 50 Lab Results Last 24 Hours: Laboratory Results - last 24 hr 10/30/17 10/30/17 Range/Units 04:50 04:50 WBC 16.5 H (4.5-11.0) K/uL RBC 3.76 L (4.30-5.90) M/uL Hgb 11.0 L (12.0-15.0) g/dL Hct 32.9 L (40.0-54.0) % MCV 88 (80-98) fL MCH 29 (27-31) pg MCHC 33 (32-36) % Plt Count 91 L (150-400) K/uL Sodium 140 (140-148) mmol/L Potassium 3.9 (3.6-5.2) mmol/L Chloride 104 (100-108) mmol/L Carbon Dioxide 26 (21-32) mmol/L Anion Gap 9.7 (5.0-14.0) mmol/L BUN 17 (7-18) mg/dL Creatinine 1.3 (0.8-1.3) mg/dL Est Cr Clr Drug Dosing 46.04 mL/min Estimated GFR (MDRD) 53 L (>60) Glucose 151 H (74-106) mg/dL Calcium 8.3 L (8.5-10.1) mg/dL Creatine Kinase 925 H (39-308) U/L Med Orders - Current: Current Medications Acetaminophen (Tylenol) 650 mg PO Q4H PRN PRN Reason: Pain (Mild 1-3)/fever Last Admin: 10/29/17 20:57 Dose: 650 mg Aspirin (Halfprin) 81 mg PO DAILY [facility] Last Admin: 10/29/17 10:16 Dose: 81 mg Digoxin (Lanoxin) 250 mcg PO DAILY@1300 [facility] Last Admin: 10/29/17 15:12 Dose: Not Given Dimethicone/Zinc Oxide (Rash Relief-Zinc Oxide [place]) 1 gm TOP ASDIRECTED PRN PRN Reason: Rash Divalproex Sodium (Divalproex Sodium) 250 mg PO TIDMEALS [facility] Last Admin: 10/29/17 16:01 Dose: 250 mg Docusate Sodium (Colace) 100 mg PO DAILY [facility] Last Admin: 10/29/17 10:29 Dose: Not Given Donepezil HCl (Aricept) 5 mg PO BEDTIME [facility] Last Admin: 10/29/17 20:49 Dose: 5 mg Gabapentin (Neurontin) 100 mg PO BEDTIME [facility] Last Admin: 10/29/17 20:49 Dose: 100 mg Glycopyrrolate (Robinul) 1 mg PO DAILY PRN PRN Reason: secretions Haloperidol Lactate (Haldol) 1 mg IVPUSH Q2H PRN PRN Reason: Agitation Last Admin: 10/28/17 21:20 Dose: 1 mg Sodium Chloride (Normal Saline) 1,000 mls @ 125 mls/hr IV ASDIRECTED [facility] Last Admin: 10/30/17 05:47 Dose: 125 mls/hr Piperacillin/Tazobactam/ (Dextrose 3.375 gm/ Premix) 50 mls @ 100 mls/hr IV Q6H [facility] Last Admin: 10/30/17 08:41 Dose: 100 mls/hr Melatonin (Melatonin) 9 mg PO BEDTIME [facility] Last Admin: 10/29/17 20:49 Dose: 9 mg Ondansetron HCl (Zofran Odt) 4 mg PO Q6H PRN PRN Reason: Nausea able to take PO Polyethylene Glycol (Miralax) 17 gm PO DAILY PRN PRN Reason: Constipation Risperidone (Risperidal) 0.5 mg PO BID@1600,2100 [facility] Last Admin: 10/29/17 20:49 Dose: 0.5 mg Sodium Chloride (Saline Flush) 10 ml FLUSH ASDIRECTED PRN PRN Reason: Keep Vein Open Last Admin: 10/28/17 09:39 Dose: 10 ml Tamsulosin HCl (Flomax) 0.4 mg PO BEDTIME [facility] Last Admin: 10/29/17 20:49 Dose: 0.4 mg Trazodone HCl (Trazodone) 100 mg PO BEDTIME [facility] Last Admin: 10/29/17 20:49 Dose: 100 mg Discontinued Medications Lactated Ringer's (Ringers, Lactated) 1,000 mls @ 999 mls/hr IV BOLUS ONE Stop: 10/28/17 10:25 Last Admin: 10/28/17 09:42 Dose: 999 mls/hr Lactated Ringer's (Ringers, Lactated) 1,000 mls @ 999 mls/hr IV BOLUS ONE Stop: 10/28/17 11:48 Last Admin: 10/28/17 10:52 Dose: 999 mls/hr Piperacillin Sod/Tazobactam (Sod 3.375 gm/ Sodium Chloride) 50 mls @ 100 mls/ hr IV Q6H [facility] Last Admin: 10/30/17 02:56 Dose: 100 mls/hr - Exam Quality Assessment: Supplemental Oxygen General: Alert, Cooperative, Mild Distress. No: Oriented Lungs: Normal Respiratory Effort, Crackles (rare right lung base) Cardiovascular: Regular Rate, Regular Rhythm GI/Abdominal Exam: Soft, No Distention Extremities: No Pedal Edema Psy/Mental Status: Alert. No: Agitated - Problem List & Annotations (1) Rhabdomyolysis SNOMED Code(s): 117168147 Code(s): M62.82 - RHABDOMYOLYSIS Status: Acute Current Visit: Yes Qualifiers: Rhabdomyolysis type: traumatic Encounter type: initial encounter Qualified Code(s): T79.6XXA - Traumatic ischemia of muscle, initial encounter (2) Dementia with behavioral problem SNOMED Code(s): 8553555580925 Code(s): F03.91 - UNSPECIFIED DEMENTIA WITH BEHAVIORAL DISTURBANCE Status: Chronic Current Visit: Yes Qualifiers: Dementia type: unspecified type Qualified Code(s): F03.91 - Unspecified dementia with behavioral disturbance (3) Aspiration pneumonia SNOMED Code(s): 198481718 Code(s): J69.0 - PNEUMONITIS DUE TO INHALATION OF FOOD AND VOMIT Status: Acute Current Visit: Yes Qualifiers: Aspiration pneumonia type: due to regurgitated food Laterality: right Lung location: lower lobe of lung Qualified Code(s): J69.0 - Pneumonitis due to inhalation of food and vomit - Problem List Review Problem List Initiated/Reviewed/Updated: Yes - My Orders Last 24 Hours: My Active Orders 10/29/17 13:00 Digoxin [Lanoxin] 250 mcg PO DAILY@1300 10/29/17 14:31 CXR [Chest 1V Frontal] [CR] Routine 10/29/17 14:32 Glycopyrrolate [Robinul] 1 mg PO DAILY PRN 10/30/17 08:00 Piperacillin/Tazobactam/Dext [Zosyn in Dextrose Iso-Osmotic 3.375 GM] 3.375 gm Premix Bag 1 bag IV Q6H 10/30/17 Lunch Mechanical Soft Diet [DIET] Thickened Liquids [DIET] 10/31/17 05:00 BASIC METABOLIC PANEL,BMP [CHEM] Timed CBC W/O DIFF,HEMOGRAM [HEME] Timed (1) CREATINE KINASE,CK [CHEM] Timed - Plan Plan:: ASSESSMENT AND PLAN - Acute traumatic rhabdomyolysis - creatinine level continues to trend down but has not normalized. -IV fluids -Repeat CK level in the morning -Physical therapy to help with weakness Aspiration pneumonia, right lower lobe - patient had episode of suspected aspiration yesterday and has developed fever and hypoxia. Chest x-ray confirmed right lower lung infiltrate yesterday. -Continue Pip/Tazo -Supplement oxygen as needed Advanced Alzheimer's dementia with behavioral disturbance - no significant agitation overnight. Not very interactive today. -Continue twice daily Risperidone -Increase Depakote to 3 times a day -Melatonin at bedtime -Continue trazodone at bedtime -consider senior behavior unit if we are unable to improve behaviors Maintenance issues - - DVT prophylaxis - mechanical - GI prophylaxis - not indicated - Nutrition - regular diet - Zamora catheter - placed this morning for urinary retention Disposition - anticipate discharge to longterm or possibly senior behavior unit after the hospital stay Primary care physician - Dr Kristian Prescott M.D.
[2017-10-30] MEDS: Docusate Sodium 100 MG Cap PO SCH (10:19)
[2017-10-30] MEDS: Aspirin 81 MG Tab.EC PO SCH (10:19)
[2017-10-30] MEDS: Divalproex Sodium Delayed-Release 250 MG Tab.CR PO SCH ×4 (10:19→16:47)
[2017-10-30] MEDS: Digoxin 125 MCG Tab PO SCH (13:05)
[2017-10-30] MEDS: risperiDONE 0.5 MG Tab PO SCH ×3 (16:30→20:20)
[2017-10-30] MEDS: Haloperidol Lactate 5 MG/ML SDV IVPUSH PRN ×2 (17:43→23:22)
[2017-10-30] MEDS: Donepezil 10 MG Tab PO SCH (20:20)
[2017-10-30] MEDS: Tamsulosin 0.4 MG Cap.ER PO SCH (20:20)
[2017-10-30] MEDS: Gabapentin 100 MG Cap PO SCH (20:20)
[2017-10-30] MEDS: Melatonin 3 MG Tab PO SCH (20:20)
[2017-10-30] MEDS: traZODone 50 MG Tab PO SCH (20:20)
[2017-10-31] MEDS: Piperacillin/Tazobactam/Dext 3.375 GM in Premix Bag 1 BAG IV SCH ×4 (03:02→20:14)
[2017-10-31] MEDS: Docusate Sodium 100 MG Cap PO SCH (08:15)
[2017-10-31] MEDS: Divalproex Sodium Delayed-Release 250 MG Tab.CR PO SCH (08:16)
[2017-10-31] MEDS: Docusate Sodium Liquid 100 MG/10 ML UD Cup PO SCH (08:16)
[2017-10-31] MEDS: Aspirin 81 MG Tab.EC PO SCH (08:16)
[2017-10-31] MEDS ORDERED: Sodium Chloride 0.9% 1,000 ML IV SCH (09:00)
--- NOTE | 2017-10-31 11:18 | PCM.PN ---
- General Info Date of Service: 10/31/17 Functional Status: Reports: Pain Controlled - Review of Systems General: Reports: Weakness. Denies: Fever Pulmonary: Reports: Shortness of Breath, Cough, Sputum Psychiatric: Reports: Confusion Systems Review Comment:: There were no acute events overnight. No fevers. He is down to 1 liter of supplemental O2. He is more interactive today but still somewhat somnolent. He is not coughing as much. No major issues with agitation overnight. - Patient Data Vitals - Most Recent: Last Vital Signs Temp 36.4 C 10/31/17 07:20 Pulse 88 10/31/17 07:20 Resp 18 10/31/17 07:20 BP 152/67 H 10/31/17 07:20 Pulse Ox 97 10/31/17 07:20 Weight - Most Recent: 74.3 kg I&O - Last 24 Hours: Intake & Output 10/30/17 10/31/17 10/31/17 22:59 06:59 14:59 Intake Total 1401 1469 30 Output Total 400 425 Balance 1001 1044 30 Lab Results Last 24 Hours: Laboratory Results - last 24 hr 10/31/17 10/31/17 Range/Units 04:44 04:44 WBC 14.4 H (4.5-11.0) K/uL RBC 3.47 L (4.30-5.90) M/uL Hgb 10.3 L (12.0-15.0) g/dL Hct 30.0 L (40.0-54.0) % MCV 87 (80-98) fL MCH 30 (27-31) pg MCHC 34 (32-36) % Plt Count 72 L (150-400) K/uL Sodium 140 (140-148) mmol/L Potassium 3.7 (3.6-5.2) mmol/L Chloride 105 (100-108) mmol/L Carbon Dioxide 25 (21-32) mmol/L Anion Gap 10.1 (5.0-14.0) mmol/L BUN 22 H (7-18) mg/dL Creatinine 1.1 (0.8-1.3) mg/dL Est Cr Clr Drug Dosing 54.41 mL/min Estimated GFR (MDRD) > 60 (>60) Glucose 109 H (74-106) mg/dL Calcium 8.1 L (8.5-10.1) mg/dL Creatine Kinase 411 H (39-308) U/L Med Orders - Current: Current Medications Acetaminophen (Tylenol) 650 mg PO Q4H PRN PRN Reason: Pain (Mild 1-3)/fever Last Admin: 10/29/17 20:57 Dose: 650 mg Aspirin (Aspirin) 81 mg PO DAILY [facility] Digoxin (Lanoxin) 250 mcg PO DAILY@1300 [facility] Last Admin: 10/30/17 13:05 Dose: 250 mcg Dimethicone/Zinc Oxide (Rash Relief-Zinc Oxide [place]) 1 gm TOP ASDIRECTED PRN PRN Reason: Rash Docusate Sodium (Colace 50 Mg/5 Ml Liquid) 100 mg PO DAILY [facility] Last Admin: 10/31/17 08:16 Dose: 100 mg Donepezil HCl (Aricept) 5 mg PO BEDTIME [facility] Last Admin: 10/30/17 20:20 Dose: 5 mg Gabapentin (Neurontin) 100 mg PO BEDTIME [facility] Last Admin: 10/30/17 20:20 Dose: 100 mg Glycopyrrolate (Robinul) 1 mg PO DAILY PRN PRN Reason: secretions Haloperidol Lactate (Haldol) 1 mg IVPUSH Q2H PRN PRN Reason: Agitation Last Admin: 10/30/17 23:22 Dose: 1 mg Piperacillin/Tazobactam/ (Dextrose 3.375 gm/ Premix) 50 mls @ 100 mls/hr IV Q6H [facility] Last Admin: 10/31/17 07:15 Dose: 100 mls/hr Sodium Chloride (Normal Saline) 1,000 mls @ 75 mls/hr IV ASDIRECTED [facility] Melatonin (Melatonin) 9 mg PO BEDTIME [facility] Last Admin: 10/30/17 20:20 Dose: 9 mg Ondansetron HCl (Zofran Odt) 4 mg PO Q6H PRN PRN Reason: Nausea able to take PO Polyethylene Glycol (Miralax) 17 gm PO DAILY PRN PRN Reason: Constipation Risperidone (Risperidal) 0.5 mg PO BID@1600,2100 [facility] Last Admin: 10/30/17 20:20 Dose: 0.5 mg Sodium Chloride (Saline Flush) 10 ml FLUSH ASDIRECTED PRN PRN Reason: Keep Vein Open Last Admin: 10/28/17 09:39 Dose: 10 ml Tamsulosin HCl (Flomax) 0.4 mg PO BEDTIME [facility] Last Admin: 10/30/17 20:20 Dose: 0.4 mg Trazodone HCl (Trazodone) 100 mg PO BEDTIME [facility] Last Admin: 10/30/17 20:20 Dose: 100 mg Valproic Acid (Depakene Syrup) 250 mg PO TIDMEALS [facility] Discontinued Medications Aspirin (Halfprin) 81 mg PO DAILY [facility] Last Admin: 10/31/17 08:16 Dose: 81 mg Divalproex Sodium (Divalproex Sodium) 250 mg PO TIDMEALS [facility] Last Admin: 10/31/17 08:16 Dose: 250 mg Docusate Sodium (Colace) 100 mg PO DAILY [facility] Last Admin: 10/30/17 10:19 Dose: Not Given Lactated Ringer's (Ringers, Lactated) 1,000 mls @ 999 mls/hr IV BOLUS ONE Stop: 10/28/17 10:25 Last Admin: 10/28/17 09:42 Dose: 999 mls/hr Lactated Ringer's (Ringers, Lactated) 1,000 mls @ 999 mls/hr IV BOLUS ONE Stop: 10/28/17 11:48 Last Admin: 10/28/17 10:52 Dose: 999 mls/hr Sodium Chloride (Normal Saline) 1,000 mls @ 125 mls/hr IV ASDIRECTED [facility] Last Admin: 10/30/17 23:07 Dose: 125 mls/hr Piperacillin Sod/Tazobactam (Sod 3.375 gm/ Sodium Chloride) 50 mls @ 100 mls/ hr IV Q6H [facility] Last Admin: 10/30/17 02:56 Dose: 100 mls/hr - Exam Quality Assessment: Supplemental Oxygen General: Alert, No Acute Distress, Lethargic. No: Oriented, Cooperative Lungs: Normal Respiratory Effort, Decreased Breath Sounds (right lung base), Rales (rare right lung base) Cardiovascular: Regular Rate, Regular Rhythm GI/Abdominal Exam: Soft, No Distention Extremities: No Pedal Edema Psy/Mental Status: Alert. No: Anxious - Problem List & Annotations (1) Rhabdomyolysis SNOMED Code(s): 429239315 Code(s): M62.82 - RHABDOMYOLYSIS Status: Acute Current Visit: Yes Qualifiers: Rhabdomyolysis type: traumatic Encounter type: initial encounter Qualified Code(s): T79.6XXA - Traumatic ischemia of muscle, initial encounter (2) Dementia with behavioral problem SNOMED Code(s): 7104160079007 Code(s): F03.91 - UNSPECIFIED DEMENTIA WITH BEHAVIORAL DISTURBANCE Status: Chronic Current Visit: Yes Qualifiers: Dementia type: unspecified type Qualified Code(s): F03.91 - Unspecified dementia with behavioral disturbance (3) Aspiration pneumonia SNOMED Code(s): 493145087 Code(s): J69.0 - PNEUMONITIS DUE TO INHALATION OF FOOD AND VOMIT Status: Acute Current Visit: Yes Qualifiers: Aspiration pneumonia type: due to regurgitated food Laterality: right Lung location: lower lobe of lung Qualified Code(s): J69.0 - Pneumonitis due to inhalation of food and vomit - Problem List Review Problem List Initiated/Reviewed/Updated: Yes - My Orders Last 24 Hours: My Active Orders 10/30/17 Lunch Mechanical Soft Diet [DIET] Thickened Liquids [DIET] 10/31/17 09:00 Docusate Sodium [Colace 50 MG/5 ML Liquid] 100 mg PO DAILY Sodium Chloride 0.9% [Normal Saline] 1,000 ml IV ASDIRECTED 10/31/17 12:00 Valproic Acid [Depakene Syrup] 250 mg PO TIDMEALS 11/01/17 05:00 BASIC METABOLIC PANEL,BMP [CHEM] Timed CBC W/O DIFF,HEMOGRAM [HEME] Timed (1) CREATINE KINASE,CK [CHEM] Timed 11/01/17 09:00 Aspirin 81 mg PO DAILY - Plan Plan:: ASSESSMENT AND PLAN - Acute traumatic rhabdomyolysis - CK level continues to trend down but has not quite normalized. -gentle IV fluids -Repeat CK level in the morning -Physical therapy to help with weakness Aspiration pneumonia, right lower lobe - patient had episode of suspected aspiration 2 days and did develop fever and hypoxia. Chest x-ray confirmed right lower lung infiltrate. Supplemental O2 needs decreasing and he is perking up. -Continue Pip/Tazo -Supplement oxygen as needed Advanced Alzheimer's dementia with behavioral disturbance - no significant agitation overnight. More interactive today. -Continue twice daily Risperidone -Increase Depakote to 3 times a day (changing to liquid today) -Melatonin at bedtime -Continue trazodone at bedtime -consider senior behavior unit if we are unable to improve behaviors Maintenance issues - - DVT prophylaxis - mechanical - GI prophylaxis - not indicated - Nutrition - regular diet - Zamora catheter - placed 10/30 for urinary retention Disposition - anticipate discharge to care home or [facility] after the hospital stay Primary care physician - Dr Kristian Prescott M.D.
[2017-10-31] MEDS: Digoxin 125 MCG Tab PO SCH (12:09)
[2017-10-31] MEDS: Valproic Acid 250 MG/5 ML Syrup ML (473 ML Bottle) PO SCH ×2 (12:10→17:40)
[2017-10-31] MEDS: risperiDONE 0.5 MG Tab PO SCH ×2 (17:40→20:12)
[2017-10-31] MEDS: Acetaminophen 325 MG Tab PO PRN (20:12)
[2017-10-31] MEDS: Donepezil 10 MG Tab PO SCH (20:12)
[2017-10-31] MEDS: Melatonin 3 MG Tab PO SCH (20:12)
[2017-10-31] MEDS: Tamsulosin 0.4 MG Cap.ER PO SCH (20:13)
[2017-10-31] MEDS: Gabapentin 100 MG Cap PO SCH (20:13)
[2017-10-31] MEDS: traZODone 50 MG Tab PO SCH (20:13)
[2017-10-31] MEDS: Haloperidol Lactate 5 MG/ML SDV IVPUSH PRN ×2 (20:15→22:54)
--- NOTE | 2017-10-31 21:37 | PCM.SN ---
- Free Text/Narrative Note: Román was able to get out of the Antoinette chair tonight and tried to walk across the room. He lost his balance striking the right side of his head and body on the wall and then on the floor. He has 21.5 cm laceration/skin tears on the right side of his forehead. He has a small laceration on the bridge of his nose. He has a skin tear on his left hand on the dorsal aspect as well as an abrasion on the left knee. He was complaining of some left pelvis pain initially but at the time of my arrival and evaluation he was not complaining of hip or pelvis pain on either side. He does not endorse other aches or pains at this time. The concern about suturing his lacerations were that he would not hold still very well and has had episodes of agitation so we elected to put on Steri-Strips. A Tegaderm was applied over the skin tear on the left hand. We did perform a head CT which did not show any bleeding or fracture. We performed a pelvis x-ray which did not show any fracture. He is currently resting comfortably in bed. He has a PAL alarm on. He will be closely monitored for the remainder of the night. Sharif Prescott M.D.
[2017-10-31] MEDS ORDERED: Haloperidol Lactate 5 MG/ML SDV IVPUSH ONE (23:43)
[2017-11-01] MEDS: Haloperidol Lactate 5 MG/ML SDV IVPUSH PRN ×3 (00:57→16:30)
[2017-11-01] MEDS: Piperacillin/Tazobactam/Dext 3.375 GM in Premix Bag 1 BAG IV SCH ×2 (01:59→08:05)
[2017-11-01] MEDS: Acetaminophen 325 MG Tab PO PRN (08:04)
[2017-11-01] MEDS: Valproic Acid 250 MG/5 ML Syrup ML (473 ML Bottle) PO SCH ×3 (08:05→17:11)
[2017-11-01] MEDS: Docusate Sodium Liquid 100 MG/10 ML UD Cup PO SCH (08:05)
[2017-11-01] MEDS ORDERED: Potassium Chloride 20 MEQ Tab.ER PO ONE (09:00)
[2017-11-01] MEDS ORDERED: Aspirin 81 MG Tab.Chew PO SCH (09:00)
--- NOTE | 2017-11-01 09:26 | CR ---
CHEST: Portable CLINICAL HISTORY:Cough COMPARISON:10/28/2017 FINDINGS: Heart size and pulmonary vascular are normal. Patient has a permanent cardiac pacer. There is a new patchy density in the right infrahilar region.. IMPRESSION: New patchy density in the right infrahilar region is suspect for a right lower lobe pneu monia. If clinically relevant short-term follow-up recommended
--- NOTE | 2017-11-01 10:50 | CT ---
Head wo Cont CLINICAL HISTORY: Subdural hematoma COMPARISON: 10/31/2017 TECHNIQUE: Transverse scans were obtained from the base of the skull through the vertex without IV co ntrast on a multislice, multidetector CT scanner. Auto dosage reduction and iterative reconstruction techniques employed. FINDINGS there is an enlarging extra-axial collection in the right the parietal occipital region. The re is some local mass effect on the occipital horn of the right lateral ventricle. There is no shift of the midline. The margin of this extra-axial collection is moderately convex raising suspicion for an epidural component as well as subdural hemorrhage. There are moderate atrophic changes. IMPRESSION: Increase in the right extra-axial hemorrhage since the earlier study. This may represent increasing subdural hematoma alone but, because of the inner margin convexity an e xtradural component is not excluded Mild mass effect on the occipital horn of the right lateral ventricle. There is no shift of the midli ne.
--- NOTE | 2017-11-01 11:32 | PCM.PN ---
- General Info Date of Service: 11/01/17 Subjective Update: This patient is an 82-year-old gentleman who was admitted with rhabdo myelolysis secondary to recurrent falls at home. He has a history of progressive dementia and his is unable to provide ongoing care for him at home. Hospital course up to this point complicated by aspiration pneumonia and a fall last night resulting in a subdural hematoma. CT scan was repeated this morning and does show a mild increase in the hematoma, there is some cerebral compression but no evidence of midline shift or herniation. I did have a long discussion with his as well as his daughters who were present today. I recommended transfer to tertiary care center for further subspecialty evaluation and management. They strongly feel that the patient would not want further aggressive interventions and had outlined these wishes in the living will. They would like to switch to comfort cares only at this time and feel that this is very consistent with the patient's previously expressed wishes. He is lethargic at the present time and unable to provide significant information concerning current symptoms or review of systems. - Patient Data Vitals - Most Recent: Last Vital Signs Temp 96.8 F 11/01/17 07:00 Pulse 63 11/01/17 07:00 Resp 18 11/01/17 07:00 BP 149/53 H 11/01/17 07:00 Pulse Ox 98 11/01/17 07:00 Weight - Most Recent: 163 lb 12.855 oz I&O - Last 24 Hours: Intake & Output 10/31/17 11/01/17 11/01/17 22:59 06:59 14:59 Intake Total 1019 545 50 Output Total 500 650 150 Balance 519 -105 -100 Lab Results Last 24 Hours: Laboratory Results - last 24 hr 11/01/17 11/01/17 Range/Units 05:15 05:15 WBC 10.7 (4.5-11.0) K/uL RBC 3.34 L (4.30-5.90) M/uL Hgb 9.6 L (12.0-15.0) g/dL Hct 29.5 L (40.0-54.0) % MCV 88 (80-98) fL MCH 29 (27-31) pg MCHC 33 (32-36) % Plt Count 101 L (150-400) K/uL Sodium 140 (140-148) mmol/L Potassium 3.2 L (3.6-5.2) mmol/L Chloride 104 (100-108) mmol/L Carbon Dioxide 26 (21-32) mmol/L Anion Gap 13.2 (5.0-14.0) mmol/L BUN 20 H (7-18) mg/dL Creatinine 0.9 (0.8-1.3) mg/dL Est Cr Clr Drug Dosing 66.50 mL/min Estimated GFR (MDRD) > 60 (>60) Glucose 95 (74-106) mg/dL Calcium 8.2 L (8.5-10.1) mg/dL Creatine Kinase 190 (39-308) U/L Med Orders - Current: Current Medications Acetaminophen (Tylenol) 650 mg PO Q4H PRN PRN Reason: Pain (Mild 1-3)/fever Last Admin: 11/01/17 08:04 Dose: 650 mg Digoxin (Lanoxin) 250 mcg PO DAILY@1300 [facility] Last Admin: 10/31/17 12:09 Dose: 250 mcg Dimethicone/Zinc Oxide (Rash Relief-Zinc Oxide [place]) 1 gm TOP ASDIRECTED PRN PRN Reason: Rash Docusate Sodium (Colace 50 Mg/5 Ml Liquid) 100 mg PO DAILY [facility] Last Admin: 11/01/17 08:05 Dose: 100 mg Donepezil HCl (Aricept) 5 mg PO BEDTIME [facility] Last Admin: 10/31/17 20:12 Dose: 5 mg Gabapentin (Neurontin) 100 mg PO BEDTIME [facility] Last Admin: 10/31/17 20:13 Dose: 100 mg Glycopyrrolate (Robinul) 1 mg PO DAILY PRN PRN Reason: secretions Last Admin: 11/01/17 09:24 Dose: 1 mg Haloperidol Lactate (Haldol) 1 mg IVPUSH Q2H PRN PRN Reason: Agitation Last Admin: 11/01/17 05:37 Dose: 1 mg Lorazepam (Ativan Oral Concentrate 1mg/0.5 Ml U/D) 0.5 mg BUCCAL Q2H PRN PRN Reason: Anxiety Melatonin (Melatonin) 9 mg PO BEDTIME [facility] Last Admin: 10/31/17 20:12 Dose: 9 mg Morphine Sulfate (Morphine 10 Mg/0.5 Ml Oral Syringe) 5 mg PO Q1H PRN PRN Reason: Pain Ondansetron HCl (Zofran Odt) 4 mg PO Q6H PRN PRN Reason: Nausea able to take PO Polyethylene Glycol (Miralax) 17 gm PO DAILY PRN PRN Reason: Constipation Risperidone (Risperidal) 0.5 mg PO BID@1600,2100 [facility] Last Admin: 10/31/17 20:12 Dose: 0.5 mg Sodium Chloride (Saline Flush) 10 ml FLUSH ASDIRECTED PRN PRN Reason: Keep Vein Open Last Admin: 10/28/17 09:39 Dose: 10 ml Tamsulosin HCl (Flomax) 0.4 mg PO BEDTIME [facility] Last Admin: 10/31/17 20:13 Dose: 0.4 mg Trazodone HCl (Trazodone) 100 mg PO BEDTIME [facility] Last Admin: 10/31/17 20:13 Dose: 100 mg Valproic Acid (Depakene Syrup) 250 mg PO TIDMEALS [facility] Last Admin: 11/01/17 08:05 Dose: 250 mg Discontinued Medications Aspirin (Halfprin) 81 mg PO DAILY [facility] Last Admin: 10/31/17 08:16 Dose: 81 mg Aspirin (Aspirin) 81 mg PO DAILY [facility] Divalproex Sodium (Divalproex Sodium) 250 mg PO TIDMEALS [facility] Last Admin: 10/31/17 08:16 Dose: 250 mg Docusate Sodium (Colace) 100 mg PO DAILY [facility] Last Admin: 10/30/17 10:19 Dose: Not Given Haloperidol Lactate (Haldol) 1 mg IVPUSH ONETIME ONE Stop: 10/31/17 23:44 Last Admin: 10/31/17 23:55 Dose: 1 mg Lactated Ringer's (Ringers, Lactated) 1,000 mls @ 999 mls/hr IV BOLUS ONE Stop: 10/28/17 10:25 Last Admin: 10/28/17 09:42 Dose: 999 mls/hr Lactated Ringer's (Ringers, Lactated) 1,000 mls @ 999 mls/hr IV BOLUS ONE Stop: 10/28/17 11:48 Last Admin: 10/28/17 10:52 Dose: 999 mls/hr Sodium Chloride (Normal Saline) 1,000 mls @ 125 mls/hr IV ASDIRECTED [facility] Last Admin: 10/30/17 23:07 Dose: 125 mls/hr Piperacillin Sod/Tazobactam (Sod 3.375 gm/ Sodium Chloride) 50 mls @ 100 mls/ hr IV Q6H [facility] Last Admin: 10/30/17 02:56 Dose: 100 mls/hr Piperacillin/Tazobactam/ (Dextrose 3.375 gm/ Premix) 50 mls @ 100 mls/hr IV Q6H [facility] Last Admin: 11/01/17 08:05 Dose: 100 mls/hr Sodium Chloride (Normal Saline) 1,000 mls @ 75 mls/hr IV ASDIRECTED [facility] Last Admin: 10/31/17 17:47 Dose: 75 mls/hr Potassium Chloride (Klor-Con M20) 40 meq PO ONETIME ONE Stop: 11/01/17 09:01 Last Admin: 11/01/17 09:24 Dose: 40 meq - Exam General: Lethargic Lungs: Clear to Auscultation, Normal Respiratory Effort Cardiovascular: Regular Rate, Regular Rhythm, No Murmurs GI/Abdominal Exam: Soft, Non-Tender, No Organomegaly, No Distention Extremities: Non-Tender, No Pedal Edema - Problem List Review Problem List Initiated/Reviewed/Updated: Yes - My Orders Last 24 Hours: My Active Orders 11/01/17 11:23 LORazepam [Ativan ORAL Concentrate 1MG/0.5 ML U/D] 0.5 mg BUCCAL Q2H PRN Morphine [Morphine 10 MG/0.5 ML Oral Syringe] 5 mg PO Q1H PRN Convert IV to Saline Lock [OM.PC] Routine 11/01/17 11:24 Consult to Hospice [CONS] Routine - Plan Plan:: ASSESSMENT AND PLAN - Subdural hematoma-secondary to a fall last night. CT scan repeated this morning and shows a mild increase in the hematoma, there is cerebral compression but no evidence of midline shift or herniation. Family does not want to consider aggressive interventions or transfer to a tertiary care center. They have requested comfort cares only and feel that this is very consistent with the patient's previously expressed wishes Acute traumatic rhabdomyolysis - resolved -Saline lock IV Aspiration pneumonia, right lower lobe - patient had episode of suspected aspiration 3 days ago and did develop fever and hypoxia. Chest x-ray confirmed right lower lung infiltrate. Family has requested comfort cares only -Discontinue IV antibiotic therapy -Supplement oxygen as needed Advanced Alzheimer's dementia with behavioral disturbance - no significant agitation overnight. More interactive today. -Continue twice daily Risperidone -Increase Depakote to 3 times a day (changing to liquid today) -Melatonin at bedtime -Continue trazodone at bedtime Maintenance issues - - DVT prophylaxis - mechanical - GI prophylaxis - not indicated - Nutrition - regular diet - Zamora catheter - placed 10/30 for urinary retention Disposition - anticipate discharge to long-term with hospice consult Primary care physician - Dr Kristian Fajardo
[2017-11-01] MEDS: LORazepam ORAL Concentrate 1MG/0.5ML U/D BUCCAL PRN ×5 (11:46→21:53)
--- NOTE | 2017-11-01 11:50 | CR ---
[facility] Clinical History: Pain, fall Findings: Patient is mildly rotated. The this minimal deformity of the right inferior pubic ramus wit h possible linear lucency. This may represent some superimposition but nondisplaced the inferior pubi c ramus fracture is not excluded. There are degenerative changes in both hips with some acetabular sp urring. Impression: Slight rotation to the right Minimal deformity of the right inferior pubic ramus. This may be artifactual but a linear fracture is not excluded
[2017-11-01] MEDS: Digoxin 125 MCG Tab PO SCH (12:21)
[2017-11-01] MEDS: risperiDONE 0.5 MG Tab PO SCH ×2 (16:18→21:34)
[2017-11-01] MEDS ORDERED: Atropine Sulfate Ophth 2 ML Drops SL PRN (21:31)
[2017-11-01] MEDS: Tamsulosin 0.4 MG Cap.ER PO SCH (21:33)
[2017-11-01] MEDS: Gabapentin 100 MG Cap PO SCH (21:33)
[2017-11-01] MEDS: Melatonin 3 MG Tab PO SCH (21:33)
[2017-11-01] MEDS: Donepezil 10 MG Tab PO SCH (21:33)
[2017-11-01] MEDS: traZODone 50 MG Tab PO SCH (21:34)
[2017-11-02] MEDS ORDERED: Atropine Sulfate Ophth 2 ML Drops SL PRN (07:07)
[2017-11-02] MEDS: Docusate Sodium Liquid 100 MG/10 ML UD Cup PO SCH (09:27)
[2017-11-02] MEDS: LORazepam ORAL Concentrate 1MG/0.5ML U/D BUCCAL PRN ×4 (09:27→21:34)
[2017-11-02] MEDS: Valproic Acid 250 MG/5 ML Syrup ML (473 ML Bottle) PO SCH ×3 (09:27→17:14)
--- NOTE | 2017-11-02 12:08 | PCM.PN ---
- General Info Date of Service: 11/02/17 Subjective Update: Mr. Hou has been marginally more alert today, very confused and oral intake has been very poor. Family feels that he is been fairly comfortable and are pleased with current management. Because of decreased level of consciousness and underlying dementia he is unable to provide specific information concerning symptoms or review of systems. Functional Status: Reports: Pain Controlled. Denies: Tolerating Diet - Review of Systems General: Reports: Chills - Patient Data Vitals - Most Recent: Last Vital Signs Temp 98.8 F 11/02/17 09:40 Pulse 80 11/02/17 09:40 Resp 18 11/02/17 09:40 BP 167/72 H 11/02/17 09:40 Pulse Ox 98 11/02/17 09:40 Weight - Most Recent: 163 lb 12.855 oz I&O - Last 24 Hours: Intake & Output 11/01/17 11/02/17 11/02/17 22:59 06:59 14:59 Output Total 300 800 525 Balance -300 -800 -525 Med Orders - Current: Current Medications Acetaminophen (Tylenol) 650 mg PO Q4H PRN PRN Reason: Pain (Mild 1-3)/fever Last Admin: 11/01/17 08:04 Dose: 650 mg Atropine Sulfate (Atropine 1%) 0 ml SL Q4H PRN PRN Reason: secretions Digoxin (Lanoxin) 250 mcg PO DAILY@1300 [facility] Last Admin: 11/01/17 12:21 Dose: Not Given Dimethicone/Zinc Oxide (Rash Relief-Zinc Oxide [place]) 1 gm TOP ASDIRECTED PRN PRN Reason: Rash Docusate Sodium (Colace 50 Mg/5 Ml Liquid) 100 mg PO DAILY [facility] Last Admin: 11/02/17 09:27 Dose: Not Given Donepezil HCl (Aricept) 5 mg PO BEDTIME [facility] Last Admin: 11/01/17 21:33 Dose: Not Given Gabapentin (Neurontin) 100 mg PO BEDTIME [facility] Last Admin: 11/01/17 21:33 Dose: Not Given Glycopyrrolate (Robinul) 1 mg PO DAILY PRN PRN Reason: secretions Last Admin: 11/01/17 09:24 Dose: 1 mg Haloperidol Lactate (Haldol) 1 mg IVPUSH Q2H PRN PRN Reason: Agitation Last Admin: 11/01/17 16:30 Dose: 1 mg Lorazepam (Ativan Oral Concentrate 1mg/0.5 Ml U/D) 0.5 mg BUCCAL Q2H PRN PRN Reason: Anxiety Last Admin: 11/02/17 09:27 Dose: 0.5 mg Melatonin (Melatonin) 9 mg PO BEDTIME [facility] Last Admin: 11/01/17 21:33 Dose: Not Given Morphine Sulfate (Morphine 10 Mg/0.5 Ml Oral Syringe) 5 mg PO Q1H PRN PRN Reason: Pain Ondansetron HCl (Zofran Odt) 4 mg PO Q6H PRN PRN Reason: Nausea able to take PO Polyethylene Glycol (Miralax) 17 gm PO DAILY PRN PRN Reason: Constipation Risperidone (Risperidal) 0.5 mg PO BID@1600,2100 [facility] Last Admin: 11/01/17 21:34 Dose: Not Given Sodium Chloride (Saline Flush) 10 ml FLUSH ASDIRECTED PRN PRN Reason: Keep Vein Open Last Admin: 10/28/17 09:39 Dose: 10 ml Tamsulosin HCl (Flomax) 0.4 mg PO BEDTIME [facility] Last Admin: 11/01/17 21:33 Dose: Not Given Trazodone HCl (Trazodone) 100 mg PO BEDTIME [facility] Last Admin: 11/01/17 21:34 Dose: Not Given Valproic Acid (Depakene Syrup) 250 mg PO TIDMEALS [facility] Last Admin: 11/02/17 09:27 Dose: 250 mg Discontinued Medications Aspirin (Halfprin) 81 mg PO DAILY [facility] Last Admin: 10/31/17 08:16 Dose: 81 mg Aspirin (Aspirin) 81 mg PO DAILY [facility] Divalproex Sodium (Divalproex Sodium) 250 mg PO TIDMEALS [facility] Last Admin: 10/31/17 08:16 Dose: 250 mg Docusate Sodium (Colace) 100 mg PO DAILY [facility] Last Admin: 10/30/17 10:19 Dose: Not Given Haloperidol Lactate (Haldol) 1 mg IVPUSH ONETIME ONE Stop: 10/31/17 23:44 Last Admin: 10/31/17 23:55 Dose: 1 mg Lactated Ringer's (Ringers, Lactated) 1,000 mls @ 999 mls/hr IV BOLUS ONE Stop: 10/28/17 10:25 Last Admin: 10/28/17 09:42 Dose: 999 mls/hr Lactated Ringer's (Ringers, Lactated) 1,000 mls @ 999 mls/hr IV BOLUS ONE Stop: 10/28/17 11:48 Last Admin: 10/28/17 10:52 Dose: 999 mls/hr Sodium Chloride (Normal Saline) 1,000 mls @ 125 mls/hr IV ASDIRECTED [facility] Last Admin: 10/30/17 23:07 Dose: 125 mls/hr Piperacillin Sod/Tazobactam (Sod 3.375 gm/ Sodium Chloride) 50 mls @ 100 mls/ hr IV Q6H [facility] Last Admin: 10/30/17 02:56 Dose: 100 mls/hr Piperacillin/Tazobactam/ (Dextrose 3.375 gm/ Premix) 50 mls @ 100 mls/hr IV Q6H [facility] Last Admin: 11/01/17 08:05 Dose: 100 mls/hr Sodium Chloride (Normal Saline) 1,000 mls @ 75 mls/hr IV ASDIRECTED [facility] Last Admin: 10/31/17 17:47 Dose: 75 mls/hr Potassium Chloride (Klor-Con M20) 40 meq PO ONETIME ONE Stop: 11/01/17 09:01 Last Admin: 11/01/17 09:24 Dose: 40 meq - Exam Quality Assessment: Supplemental Oxygen, DVT Prophylaxis General: Lethargic Lungs: Clear to Auscultation, Normal Respiratory Effort Cardiovascular: Regular Rate, Regular Rhythm, No Murmurs GI/Abdominal Exam: Soft, Non-Tender, No Organomegaly, No Distention - Problem List Review Problem List Initiated/Reviewed/Updated: Yes - My Orders Last 24 Hours: My Active Orders 11/01/17 11:23 LORazepam [Ativan ORAL Concentrate 1MG/0.5 ML U/D] 0.5 mg BUCCAL Q2H PRN Morphine [Morphine 10 MG/0.5 ML Oral Syringe] 5 mg PO Q1H PRN Convert IV to Saline Lock [OM.PC] Routine 11/01/17 11:24 Consult to Hospice [CONS] Routine 11/02/17 07:07 Atropine Sulfate [Atropine 1%] 0 ml SL Q4H PRN - Plan Plan:: ASSESSMENT AND PLAN - Subdural hematoma-secondary to a fall, repeat CT scan showed a mild increase in the hematoma, there is cerebral compression but no evidence of midline shift or herniation. Family does not want to consider aggressive interventions or transfer to a tertiary care center. They have requested comfort cares only and feel that this is very consistent with the patient's previously expressed wishes Acute traumatic rhabdomyolysis - resolved -Saline lock IV Aspiration pneumonia, right lower lobe - patient had episode of suspected aspiration 4 days ago and did develop fever and hypoxia. Chest x-ray confirmed right lower lung infiltrate. Family has requested comfort cares only -Discontinue IV antibiotic therapy -Supplement oxygen as needed Advanced Alzheimer's dementia with behavioral disturbance - lethargic with no significant agitation, unable to take oral medication at this time. Plan to resume medications when he is able to swallow and eat. -Continue twice daily Risperidone -Increase Depakote to 3 times a day (changing to liquid today) -Melatonin at bedtime -Continue trazodone at bedtime Maintenance issues - - DVT prophylaxis - mechanical - GI prophylaxis - not indicated - Nutrition - regular diet - Zamora catheter - placed 10/30 for urinary retention Disposition - anticipate discharge to senior care with hospice consult Primary care physician - Dr Kristian Fajardo
[2017-11-02] MEDS: Digoxin 125 MCG Tab PO SCH (13:41)
[2017-11-02] MEDS: risperiDONE 0.5 MG Tab PO SCH ×2 (17:14→20:15)
[2017-11-02] MEDS: Melatonin 3 MG Tab PO SCH (20:15)
[2017-11-02] MEDS: Tamsulosin 0.4 MG Cap.ER PO SCH (20:15)
[2017-11-02] MEDS: Gabapentin 100 MG Cap PO SCH (20:15)
[2017-11-02] MEDS: traZODone 50 MG Tab PO SCH (20:15)
[2017-11-02] MEDS: Donepezil 10 MG Tab PO SCH (20:15)
[2017-11-03] MEDS: LORazepam ORAL Concentrate 1MG/0.5ML U/D BUCCAL PRN ×7 (02:17→23:03)
[2017-11-03] MEDS: Docusate Sodium Liquid 100 MG/10 ML UD Cup PO SCH (08:39)
[2017-11-03] MEDS: Valproic Acid 250 MG/5 ML Syrup ML (473 ML Bottle) PO SCH ×3 (08:39→16:26)
[2017-11-03] MEDS ORDERED: Bisacodyl 10 MG Supp RECTAL PRN (11:58)
--- NOTE | 2017-11-03 12:21 | PCM.PN ---
- General Info Date of Service: 11/03/17 Subjective Update: Mr. Hou has been stable over the past 24 hours, receiving intermittent doses of lorazepam which seem to be working well for comfort. Respiratory status has improved with no further apneic episodes. Oral intake has been poor and he has been unable to swallow oral medications. Because of his decreased level of consciousness he is unable to provide significant information concerning symptoms or review of systems. - Patient Data Vitals - Most Recent: Last Vital Signs Temp 98.3 F 11/03/17 07:19 Pulse 73 11/03/17 07:19 Resp 18 11/03/17 07:19 BP 127/33 L 11/03/17 07:19 Pulse Ox 92 L 11/03/17 07:19 Weight - Most Recent: 163 lb 12.855 oz I&O - Last 24 Hours: Intake & Output 11/02/17 11/03/17 11/03/17 22:59 06:59 14:59 Output Total 1000 Balance -1000 Med Orders - Current: Current Medications Acetaminophen (Tylenol) 650 mg PO Q4H PRN PRN Reason: Pain (Mild 1-3)/fever Last Admin: 11/01/17 08:04 Dose: 650 mg Atropine Sulfate (Atropine 1%) 0 ml SL Q4H PRN PRN Reason: secretions Bisacodyl (Dulcolax) 10 mg RECTAL BID PRN PRN Reason: Constipation Digoxin (Lanoxin) 250 mcg PO DAILY@1300 [facility] Last Admin: 11/02/17 13:41 Dose: Not Given Dimethicone/Zinc Oxide (Rash Relief-Zinc Oxide [place]) 1 gm TOP ASDIRECTED PRN PRN Reason: Rash Docusate Sodium (Colace 50 Mg/5 Ml Liquid) 100 mg PO DAILY [facility] Last Admin: 11/03/17 08:39 Dose: Not Given Donepezil HCl (Aricept) 5 mg PO BEDTIME [facility] Last Admin: 11/02/17 20:15 Dose: Not Given Gabapentin (Neurontin) 100 mg PO BEDTIME [facility] Last Admin: 11/02/17 20:15 Dose: Not Given Glycopyrrolate (Robinul) 1 mg PO DAILY PRN PRN Reason: secretions Last Admin: 11/01/17 09:24 Dose: 1 mg Haloperidol Lactate (Haldol) 1 mg IVPUSH Q2H PRN PRN Reason: Agitation Last Admin: 11/01/17 16:30 Dose: 1 mg Lorazepam (Ativan Oral Concentrate 1mg/0.5 Ml U/D) 0.5 mg BUCCAL Q2H PRN PRN Reason: Anxiety Last Admin: 11/03/17 08:20 Dose: 0.5 mg Melatonin (Melatonin) 9 mg PO BEDTIME [facility] Last Admin: 11/02/17 20:15 Dose: Not Given Morphine Sulfate (Morphine 10 Mg/0.5 Ml Oral Syringe) 5 mg PO Q1H PRN PRN Reason: Pain Ondansetron HCl (Zofran Odt) 4 mg PO Q6H PRN PRN Reason: Nausea able to take PO Polyethylene Glycol (Miralax) 17 gm PO DAILY PRN PRN Reason: Constipation Risperidone (Risperidal) 0.5 mg PO BID@1600,2100 [facility] Last Admin: 11/02/17 20:15 Dose: Not Given Sodium Chloride (Saline Flush) 10 ml FLUSH ASDIRECTED PRN PRN Reason: Keep Vein Open Last Admin: 10/28/17 09:39 Dose: 10 ml Tamsulosin HCl (Flomax) 0.4 mg PO BEDTIME [facility] Last Admin: 11/02/17 20:15 Dose: Not Given Trazodone HCl (Trazodone) 100 mg PO BEDTIME [facility] Last Admin: 11/02/17 20:15 Dose: Not Given Valproic Acid (Depakene Syrup) 250 mg PO TIDMEALS [facility] Last Admin: 11/03/17 08:39 Dose: Not Given Discontinued Medications Aspirin (Halfprin) 81 mg PO DAILY [facility] Last Admin: 10/31/17 08:16 Dose: 81 mg Aspirin (Aspirin) 81 mg PO DAILY [facility] Divalproex Sodium (Divalproex Sodium) 250 mg PO TIDMEALS [facility] Last Admin: 10/31/17 08:16 Dose: 250 mg Docusate Sodium (Colace) 100 mg PO DAILY [facility] Last Admin: 10/30/17 10:19 Dose: Not Given Haloperidol Lactate (Haldol) 1 mg IVPUSH ONETIME ONE Stop: 10/31/17 23:44 Last Admin: 10/31/17 23:55 Dose: 1 mg Lactated Ringer's (Ringers, Lactated) 1,000 mls @ 999 mls/hr IV BOLUS ONE Stop: 10/28/17 10:25 Last Admin: 10/28/17 09:42 Dose: 999 mls/hr Lactated Ringer's (Ringers, Lactated) 1,000 mls @ 999 mls/hr IV BOLUS ONE Stop: 10/28/17 11:48 Last Admin: 10/28/17 10:52 Dose: 999 mls/hr Sodium Chloride (Normal Saline) 1,000 mls @ 125 mls/hr IV ASDIRECTED [facility] Last Admin: 10/30/17 23:07 Dose: 125 mls/hr Piperacillin Sod/Tazobactam (Sod 3.375 gm/ Sodium Chloride) 50 mls @ 100 mls/ hr IV Q6H [facility] Last Admin: 10/30/17 02:56 Dose: 100 mls/hr Piperacillin/Tazobactam/ (Dextrose 3.375 gm/ Premix) 50 mls @ 100 mls/hr IV Q6H [facility] Last Admin: 11/01/17 08:05 Dose: 100 mls/hr Sodium Chloride (Normal Saline) 1,000 mls @ 75 mls/hr IV ASDIRECTED [facility] Last Admin: 10/31/17 17:47 Dose: 75 mls/hr Potassium Chloride (Klor-Con M20) 40 meq PO ONETIME ONE Stop: 11/01/17 09:01 Last Admin: 11/01/17 09:24 Dose: 40 meq - Exam General: Lethargic Lungs: Clear to Auscultation, Normal Respiratory Effort Cardiovascular: Regular Rate, Regular Rhythm, No Murmurs GI/Abdominal Exam: Soft, Non-Tender, No Organomegaly, No Distention - Problem List Review Problem List Initiated/Reviewed/Updated: Yes - My Orders Last 24 Hours: My Active Orders 11/03/17 11:58 Bisacodyl [Dulcolax] 10 mg RECTAL BID PRN - Plan Plan:: ASSESSMENT AND PLAN - Subdural hematoma-secondary to a fall, repeat CT scan showed a mild increase in the hematoma, there is cerebral compression but no evidence of midline shift or herniation. Family does not want to consider aggressive interventions or transfer to a tertiary care center. They have requested comfort cares only and feel that this is very consistent with the patient's previously expressed wishes Acute traumatic rhabdomyolysis - resolved -Saline lock IV Aspiration pneumonia, right lower lobe -Supplement oxygen as needed Advanced Alzheimer's dementia with behavioral disturbance - lethargic with no significant agitation, unable to take oral medication at this time. Plan to resume medications when he is able to swallow and eat. Maintenance issues - - DVT prophylaxis - mechanical - GI prophylaxis - not indicated - Nutrition - regular diet - Zamora catheter - placed 10/30 for urinary retention Disposition - anticipate discharge to half-way with hospice consult Primary care physician - Dr Kristian Fajardo
[2017-11-03] MEDS: Digoxin 125 MCG Tab PO SCH (13:41)
[2017-11-03] MEDS: Morphine 10 MG/0.5 ML Oral Syringe PO PRN (16:26)
[2017-11-03] MEDS: risperiDONE 0.5 MG Tab PO SCH ×2 (16:26→21:01)
[2017-11-03] MEDS: Tamsulosin 0.4 MG Cap.ER PO SCH (21:00)
[2017-11-03] MEDS: Gabapentin 100 MG Cap PO SCH (21:00)
[2017-11-03] MEDS: Melatonin 3 MG Tab PO SCH (21:00)
[2017-11-03] MEDS: Donepezil 10 MG Tab PO SCH (21:00)
[2017-11-03] MEDS: traZODone 50 MG Tab PO SCH (21:01)
[2017-11-04] MEDS: LORazepam ORAL Concentrate 1MG/0.5ML U/D BUCCAL PRN ×6 (02:06→23:24)
[2017-11-04] MEDS: Morphine 10 MG/0.5 ML Oral Syringe PO PRN ×4 (04:57→23:24)
[2017-11-04] MEDS: Docusate Sodium Liquid 100 MG/10 ML UD Cup PO SCH (08:36)
[2017-11-04] MEDS: Valproic Acid 250 MG/5 ML Syrup ML (473 ML Bottle) PO SCH ×3 (08:36→16:53)
[2017-11-04] MEDS: Digoxin 125 MCG Tab PO SCH (12:15)
--- NOTE | 2017-11-04 14:58 | PCM.PN ---
- General Info Date of Service: 11/04/17 Subjective Update: Mr. Hou has remained fairly stable over the past 24 hours, no significant oral intake of solids or liquids. Family feels that he is been comfortable with current management. He is unable to provide significant information concerning symptoms or review of systems because of underlying dementia and decreased level of consciousness. - Patient Data Vitals - Most Recent: Last Vital Signs Temp 97.8 F 11/04/17 08:10 Pulse 73 11/04/17 08:10 Resp 12 11/04/17 08:10 BP 128/55 L 11/04/17 08:10 Pulse Ox 94 L 11/04/17 08:10 Weight - Most Recent: 163 lb 12.855 oz I&O - Last 24 Hours: Intake & Output 11/03/17 11/04/17 11/04/17 22:59 06:59 14:59 Intake Total 0 Output Total 450 400 Balance -450 -400 Med Orders - Current: Current Medications Acetaminophen (Tylenol) 650 mg PO Q4H PRN PRN Reason: Pain (Mild 1-3)/fever Last Admin: 11/01/17 08:04 Dose: 650 mg Atropine Sulfate (Atropine 1%) 0 ml SL Q4H PRN PRN Reason: secretions Bisacodyl (Dulcolax) 10 mg RECTAL BID PRN PRN Reason: Constipation Last Admin: 11/03/17 13:04 Dose: 10 mg Digoxin (Lanoxin) 250 mcg PO DAILY@1300 [facility] Last Admin: 11/04/17 12:15 Dose: Not Given Dimethicone/Zinc Oxide (Rash Relief-Zinc Oxide [place]) 1 gm TOP ASDIRECTED PRN PRN Reason: Rash Docusate Sodium (Colace 50 Mg/5 Ml Liquid) 100 mg PO DAILY [facility] Last Admin: 11/04/17 08:36 Dose: Not Given Donepezil HCl (Aricept) 5 mg PO BEDTIME [facility] Last Admin: 11/03/17 21:00 Dose: Not Given Gabapentin (Neurontin) 100 mg PO BEDTIME [facility] Last Admin: 11/03/17 21:00 Dose: Not Given Glycopyrrolate (Robinul) 1 mg PO DAILY PRN PRN Reason: secretions Last Admin: 11/01/17 09:24 Dose: 1 mg Haloperidol Lactate (Haldol) 1 mg IVPUSH Q2H PRN PRN Reason: Agitation Last Admin: 11/01/17 16:30 Dose: 1 mg Lorazepam (Ativan Oral Concentrate 1mg/0.5 Ml U/D) 0.5 mg BUCCAL Q2H PRN PRN Reason: Anxiety Last Admin: 11/04/17 13:01 Dose: 0.5 mg Melatonin (Melatonin) 9 mg PO BEDTIME [facility] Last Admin: 11/03/17 21:00 Dose: Not Given Morphine Sulfate (Morphine 10 Mg/0.5 Ml Oral Syringe) 5 mg PO Q1H PRN PRN Reason: Pain Last Admin: 11/04/17 14:31 Dose: 5 mg Ondansetron HCl (Zofran Odt) 4 mg PO Q6H PRN PRN Reason: Nausea able to take PO Polyethylene Glycol (Miralax) 17 gm PO DAILY PRN PRN Reason: Constipation Risperidone (Risperidal) 0.5 mg PO BID@1600,2100 [facility] Last Admin: 11/03/17 21:01 Dose: Not Given Sodium Chloride (Saline Flush) 10 ml FLUSH ASDIRECTED PRN PRN Reason: Keep Vein Open Last Admin: 10/28/17 09:39 Dose: 10 ml Tamsulosin HCl (Flomax) 0.4 mg PO BEDTIME [facility] Last Admin: 11/03/17 21:00 Dose: Not Given Trazodone HCl (Trazodone) 100 mg PO BEDTIME [facility] Last Admin: 11/03/17 21:01 Dose: Not Given Valproic Acid (Depakene Syrup) 250 mg PO TIDMEALS [facility] Last Admin: 11/04/17 12:14 Dose: Not Given Discontinued Medications Aspirin (Halfprin) 81 mg PO DAILY [facility] Last Admin: 10/31/17 08:16 Dose: 81 mg Aspirin (Aspirin) 81 mg PO DAILY [facility] Divalproex Sodium (Divalproex Sodium) 250 mg PO TIDMEALS [facility] Last Admin: 10/31/17 08:16 Dose: 250 mg Docusate Sodium (Colace) 100 mg PO DAILY [facility] Last Admin: 10/30/17 10:19 Dose: Not Given Haloperidol Lactate (Haldol) 1 mg IVPUSH ONETIME ONE Stop: 10/31/17 23:44 Last Admin: 10/31/17 23:55 Dose: 1 mg Lactated Ringer's (Ringers, Lactated) 1,000 mls @ 999 mls/hr IV BOLUS ONE Stop: 10/28/17 10:25 Last Admin: 10/28/17 09:42 Dose: 999 mls/hr Lactated Ringer's (Ringers, Lactated) 1,000 mls @ 999 mls/hr IV BOLUS ONE Stop: 10/28/17 11:48 Last Admin: 10/28/17 10:52 Dose: 999 mls/hr Sodium Chloride (Normal Saline) 1,000 mls @ 125 mls/hr IV ASDIRECTED [facility] Last Admin: 10/30/17 23:07 Dose: 125 mls/hr Piperacillin Sod/Tazobactam (Sod 3.375 gm/ Sodium Chloride) 50 mls @ 100 mls/ hr IV Q6H [facility] Last Admin: 10/30/17 02:56 Dose: 100 mls/hr Piperacillin/Tazobactam/ (Dextrose 3.375 gm/ Premix) 50 mls @ 100 mls/hr IV Q6H [facility] Last Admin: 11/01/17 08:05 Dose: 100 mls/hr Sodium Chloride (Normal Saline) 1,000 mls @ 75 mls/hr IV ASDIRECTED [facility] Last Admin: 10/31/17 17:47 Dose: 75 mls/hr Potassium Chloride (Klor-Con M20) 40 meq PO ONETIME ONE Stop: 11/01/17 09:01 Last Admin: 11/01/17 09:24 Dose: 40 meq - Exam General: Sedated, Lethargic Lungs: Clear to Auscultation, Normal Respiratory Effort Cardiovascular: Regular Rate, Regular Rhythm, No Murmurs GI/Abdominal Exam: Soft, Non-Tender, No Organomegaly, No Distention Extremities: Non-Tender, No Pedal Edema Skin: Warm, Dry - Problem List Review Problem List Initiated/Reviewed/Updated: Yes - Plan Plan:: ASSESSMENT AND PLAN - Subdural hematoma-secondary to a fall, repeat CT scan showed a mild increase in the hematoma, there is cerebral compression but no evidence of midline shift or herniation. Family does not want to consider aggressive interventions or transfer to a tertiary care center. They have requested comfort cares only and feel that this is very consistent with the patient's previously expressed wishes. -Continue liquid morphine and lorazepam as needed for comfort Acute traumatic rhabdomyolysis - resolved -Saline lock IV Aspiration pneumonia, right lower lobe -Supplement oxygen as needed Advanced Alzheimer's dementia with behavioral disturbance - lethargic with no significant agitation, unable to take oral medication at this time. Plan to resume medications when he is able to swallow and eat. Palliative care-amylase decided to not pursue further aggressive interventions or evaluation and feel that this is very consistent with the patient's previously expressed wishes. Maintenance issues - - DVT prophylaxis - mechanical - GI prophylaxis - not indicated - Nutrition - regular diet - Zam[place] catheter - placed 10/30 for urinary retention Disposition - anticipate discharge to detention with hospice consult Primary care physician - Dr Kristian Fajardo
[2017-11-04] MEDS: risperiDONE 0.5 MG Tab PO SCH ×2 (15:02→20:11)
[2017-11-04] MEDS: Gabapentin 100 MG Cap PO SCH (20:11)
[2017-11-04] MEDS: Tamsulosin 0.4 MG Cap.ER PO SCH (20:11)
[2017-11-04] MEDS: Melatonin 3 MG Tab PO SCH (20:11)
[2017-11-04] MEDS: Donepezil 10 MG Tab PO SCH (20:11)
[2017-11-04] MEDS: traZODone 50 MG Tab PO SCH (20:12)
[2017-11-05 07:04] VITALS: BP 170/59
--- NOTE | 2017-11-05 08:13 | PCM.DCSUM1 ---
Discharge Summary - Hospital Course Brief History: Mr. Hou was admitted through the emergency department with a history of progressive dementia resulting in weakness with recurrent falls, increased confusion, and agitation. On the evening prior to admission he was had fallen and family was unable to get him up and off of the floor, CK was found to be elevated time of admission consistent with rhabdomyolysis. - Discharge Data Discharge Date: 11/05/17 Discharge Disposition: DC/Tfer to SNF 03 Condition: Poor - Discharge Diagnosis/Problem(s) (1) Subdural hematoma SNOMED Code(s): 32969449 ICD Code: S06.5X9A - TRAUM SUBDR HEM W LOC OF UNSP DURATION, INIT Status: Acute Current Visit: Yes (2) Aspiration pneumonia SNOMED Code(s): 994693435 ICD Code: J69.0 - PNEUMONITIS DUE TO INHALATION OF FOOD AND VOMIT Status: Acute Current Visit: Yes Qualifiers: Aspiration pneumonia type: due to regurgitated food Laterality: right Lung location: lower lobe of lung Qualified Code(s): J69.0 - Pneumonitis due to inhalation of food and vomit (3) Rhabdomyolysis SNOMED Code(s): 231219606 ICD Code: M62.82 - RHABDOMYOLYSIS Status: Acute Current Visit: Yes Qualifiers: Rhabdomyolysis type: traumatic Encounter type: initial encounter Qualified Code(s): T79.6XXA - Traumatic ischemia of muscle, initial encounter (4) Dementia with behavioral problem SNOMED Code(s): 9868885839076 ICD Code: F03.91 - UNSPECIFIED DEMENTIA WITH BEHAVIORAL DISTURBANCE Status : Chronic Current Visit: Yes Qualifiers: Dementia type: unspecified type Qualified Code(s): F03.91 - Unspecified dementia with behavioral disturbance (5) CRI (chronic renal insufficiency) SNOMED Code(s): 729242857 ICD Code: N18.9 - CHRONIC KIDNEY DISEASE, UNSPECIFIED Status: Chronic Current Visit: No - Patient Summary/Data Consults: Consultations 10/29/17 07:00 PT Evaluation and Treatment [CONS] Routine Please Evaluate and Treat. PT Reason for Consult: Strengthening This query below is only for informational purposes and is not editable. 11/01/17 11:24 Consult to Hospice [CONS] Routine Comment: Physician Instructions: Reason for Consult: Severe Dementia, aspiration pneumonia Hospital Course: Román presents to the emergency room today with a combination of weakness as well as intermittent agitation. His history is very difficult to obtain because of his severe dementia so history is gathered from his . She reports that he sleeps in a recliner and fell out of the recliner at some point. He was too weak to get off the floor but was able to crawl around sustaining some abrasions to his knees. Because he was too weak to get off the floor she called 911 for assistance. He is also been having increased difficulty with agitation and even some violent agitation. She feels that she's not able to take care of him at home anymore because of his increasing aggressiveness and worsening dementia further complicated by his increasing weakness. He is currently complaining of some discomfort in his backside but is unable to further characterize or described his pain because of his dementia. He says it hurts. His has not noticed change in bowel or bladder function. He has not been eating well at home but did have a good breakfast. Workup in the emergency room most notable for a CK level of more than 3000. He will be admitted for management of rhabdomyolysis. On admission he was given IV fluids for hydration, urine output and renal function were monitored closely as well as repeat CK levels. Renal function remained stable and CK level improved following hydration. Hospital course was complicated by an episode of aspiration, resulting in transient hypoxia and fever. His reported that he has had recurrent episodes of choking and coughing with eating. After blood cultures were obtained he was started on IV antibiotic therapy for management of probable aspiration pneumonia. Respiratory status stabilized with adequate oxygenation on room air. Hospital course was then further compromised and complicated by a fall which occurred on the evening of October 31. He was evaluated and found to have evidence of lacerations on his forehead. CT scan of the head was obtained and did document evidence of a subdural hematoma in addition to nasal fracture. CT scan was reviewed by neurosurgery who recommended that a follow-up CT of the obtained in the morning and if there was any evidence of progression of the hematoma he should be transferred for further subspecialty care. Following morning CT scan was repeated and did show slight increase in the subdural hematoma, there was brain compression from the hematoma but no evidence of midline shift or herniation. These results were reviewed with family including his and daughters. They felt strongly that the patient would not want further aggressive evaluation or intervention and that comfort cares only would be very consistent with his previously expressed wishes. He was not transferred for further evaluation and placed on comfort care with lorazepam and morphine as needed. Antibiotics were discontinued as well as IV fluids. He remained comfortable and fairly stable over the next several days of hospital stay. He will be [facility] with [facility] cares and possible hospice admission after the next few days. Activity will be as tolerated and he will be on a pured nectar thickened liquid diet. - Patient Instructions Diet: Pureed Diet, Other: [place] thickened liquids Activity: As Tolerated Other/Special Instructions: Comfort cares only - Discharge Plan *PRESCRIPTION DRUG MONITORING PROGRAM REVIEWED*: Not Applicable *COPY OF PRESCRIPTION DRUG MONITORING REPORT IN PATIENT RENU: Not Applicable Prescriptions/Med Rec: LORazepam [Ativan ORAL Concentrate 1MG/0.5 ML U/D] 0.5 mg BUCCAL Q2H PRN #30 ml PRN Reason: Anxiety Morphine [Morphine 10 MG/0.5 ML Oral Syringe] 5 mg BUCCAL Q1H PRN #30 ml PRN Reason: Pain Home Medications: Home Meds Dimethicone/Zinc Oxide [Rash Relief-Zinc Oxide] 1 gm TOP ASDIRECTED PRN bottle 11/04/17 [Rx] LORazepam [Ativan ORAL Concentrate 1MG/0.5 ML U/D] 0.5 mg BUCCAL Q2H PRN #30 ml 11/04/17 [Rx] Morphine [Morphine 10 MG/0.5 ML Oral Syringe] 5 mg BUCCAL Q1H PRN #30 ml [Rx] Valproic Acid [Depakene Syrup] 250 mg PO TIDMEALS ml 11/04/17 [Rx] Patient Handouts: Rhabdomyolysis Referrals: Bryan Lamb MD [Primary Care Provider] - - Discharge Summary/Plan Comment DC Time >30 min.: No - Patient Data Vitals - Most Recent: Last Vital Signs Temp 96.9 F 11/05/17 06:56 Pulse 62 11/05/17 06:56 Resp 16 11/05/17 06:56 BP 170/59 H 11/05/17 06:56 Pulse Ox 96 11/05/17 06:56 Weight - Most Recent: 163 lb 12.855 oz I&O - Last 24 hours: Intake & Output 11/04/17 11/05/17 11/05/17 22:59 06:59 14:59 Output Total 450 400 Balance -450 -400 Med Orders - Current: Current Medications Acetaminophen (Tylenol) 650 mg PO Q4H PRN PRN Reason: Pain (Mild 1-3)/fever Last Admin: 11/01/17 08:04 Dose: 650 mg Atropine Sulfate (Atropine 1%) 0 ml SL Q4H PRN PRN Reason: secretions Bisacodyl (Dulcolax) 10 mg RECTAL BID PRN PRN Reason: Constipation Last Admin: 11/03/17 13:04 Dose: 10 mg Digoxin (Lanoxin) 250 mcg PO DAILY@1300 [facility] Last Admin: 11/04/17 12:15 Dose: Not Given Dimethicone/Zinc Oxide (Rash Relief-Zinc Oxide [place]) 1 gm TOP ASDIRECTED PRN PRN Reason: Rash Docusate Sodium (Colace 50 Mg/5 Ml Liquid) 100 mg PO DAILY [facility] Last Admin: 11/04/17 08:36 Dose: Not Given Donepezil HCl (Aricept) 5 mg PO BEDTIME [facility] Last Admin: 11/04/17 20:11 Dose: Not Given Gabapentin (Neurontin) 100 mg PO BEDTIME [facility] Last Admin: 11/04/17 20:11 Dose: Not Given Glycopyrrolate (Robinul) 1 mg PO DAILY PRN PRN Reason: secretions Last Admin: 11/01/17 09:24 Dose: 1 mg Haloperidol Lactate (Haldol) 1 mg IVPUSH Q2H PRN PRN Reason: Agitation Last Admin: 11/01/17 16:30 Dose: 1 mg Lorazepam (Ativan Oral Concentrate 1mg/0.5 Ml U/D) 0.5 mg BUCCAL Q2H PRN PRN Reason: Anxiety Last Admin: 11/04/17 23:24 Dose: 0.5 mg Melatonin (Melatonin) 9 mg PO BEDTIME [facility] Last Admin: 11/04/17 20:11 Dose: Not Given Morphine Sulfate (Morphine 10 Mg/0.5 Ml Oral Syringe) 5 mg PO Q1H PRN PRN Reason: Pain Last Admin: 11/04/17 23:24 Dose: 5 mg Ondansetron HCl (Zofran Odt) 4 mg PO Q6H PRN PRN Reason: Nausea able to take PO Polyethylene Glycol (Miralax) 17 gm PO DAILY PRN PRN Reason: Constipation Risperidone (Risperidal) 0.5 mg PO BID@1600,2100 [facility] Last Admin: 11/04/17 20:11 Dose: Not Given Sodium Chloride (Saline Flush) 10 ml FLUSH ASDIRECTED PRN PRN Reason: Keep Vein Open Last Admin: 10/28/17 09:39 Dose: 10 ml Tamsulosin HCl (Flomax) 0.4 mg PO BEDTIME [facility] Last Admin: 11/04/17 20:11 Dose: Not Given Trazodone HCl (Trazodone) 100 mg PO BEDTIME [facility] Last Admin: 11/04/17 20:12 Dose: Not Given Valproic Acid (Depakene Syrup) 250 mg PO TIDMEALS [facility] Last Admin: 11/04/17 16:53 Dose: Not Given Discontinued Medications Aspirin (Halfprin) 81 mg PO DAILY [facility] Last Admin: 10/31/17 08:16 Dose: 81 mg Aspirin (Aspirin) 81 mg PO DAILY [facility] Divalproex Sodium (Divalproex Sodium) 250 mg PO TIDMEALS [facility] Last Admin: 10/31/17 08:16 Dose: 250 mg Docusate Sodium (Colace) 100 mg PO DAILY [facility] Last Admin: 10/30/17 10:19 Dose: Not Given Haloperidol Lactate (Haldol) 1 mg IVPUSH ONETIME ONE Stop: 10/31/17 23:44 Last Admin: 10/31/17 23:55 Dose: 1 mg Lactated Ringer's (Ringers, Lactated) 1,000 mls @ 999 mls/hr IV BOLUS ONE Stop: 10/28/17 10:25 Last Admin: 10/28/17 09:42 Dose: 999 mls/hr Lactated Ringer's (Ringers, Lactated) 1,000 mls @ 999 mls/hr IV BOLUS ONE Stop: 10/28/17 11:48 Last Admin: 10/28/17 10:52 Dose: 999 mls/hr Sodium Chloride (Normal Saline) 1,000 mls @ 125 mls/hr IV ASDIRECTED [facility] Last Admin: 10/30/17 23:07 Dose: 125 mls/hr Piperacillin Sod/Tazobactam (Sod 3.375 gm/ Sodium Chloride) 50 mls @ 100 mls/ hr IV Q6H [facility] Last Admin: 10/30/17 02:56 Dose: 100 mls/hr Piperacillin/Tazobactam/ (Dextrose 3.375 gm/ Premix) 50 mls @ 100 mls/hr IV Q6H [facility] Last Admin: 11/01/17 08:05 Dose: 100 mls/hr Sodium Chloride (Normal Saline) 1,000 mls @ 75 mls/hr IV ASDIRECTED [facility] Last Admin: 10/31/17 17:47 Dose: 75 mls/hr Potassium Chloride (Klor-Con M20) 40 meq PO ONETIME ONE Stop: 11/01/17 09:01 Last Admin: 11/01/17 09:24 Dose: 40 meq - Exam General: Reports: Sedated, Lethargic Lungs: Reports: Clear to Auscultation, Normal Respiratory Effort Cardiovascular: Reports: Regular Rate, Regular Rhythm, No Murmurs GI/Abdominal Exam: Soft, Non-Tender, No Organomegaly, No Distention
[2017-11-05] MEDS: LORazepam ORAL Concentrate 1MG/0.5ML U/D BUCCAL PRN (09:06)
[2017-11-05] MEDS: Morphine 10 MG/0.5 ML Oral Syringe PO PRN (09:07)
[2017-11-05] MEDS: Valproic Acid 250 MG/5 ML Syrup ML (473 ML Bottle) PO SCH (09:38)
== END 2017-11-05 09:50 | DRG 963 ==
LOC: JP.ED 07:30 → JP.MS 11:31
PROVIDERS: ADMIT Internal Medicine; ATTEND Hospitalist
DX: T79.6XXA Traumatic ischemia of muscle, initial encounter (principal); J69.0 Pneumonitis due to inhalation of food and vomit; S06.5X9A Traumatic subdural hemorrhage with loss of consciousness of unspecified duration, initial encounter; F02.81 Dementia in other diseases classified elsewhere, unspecified severity, with behavioral disturbance; F05 Delirium due to known physiological condition; Z51.5 Encounter for palliative care; Z66 Do not resuscitate; R53.1 Weakness; R29.6 Repeated falls; W19.XXXA Unspecified fall, initial encounter; G30.9 Alzheimer's disease, unspecified; E11.9 Type 2 diabetes mellitus without complications; Z87.891 Personal history of nicotine dependence; Z91.81 History of falling; R45.1 Restlessness and agitation; W18.09XA Striking against other object with subsequent fall, initial encounter; Y93.9 Activity, unspecified; Y92.230 Patient room in hospital as the place of occurrence of the external cause; S01.81XA Laceration without foreign body of other part of head, initial encounter; S61.412A Laceration without foreign body of left hand, initial encounter; S02.2XXA Fracture of nasal bones, initial encounter for closed fracture; S80.212A Abrasion, left knee, initial encounter; M25.552 Pain in left hip; R53.83 Other fatigue; N18.9 Chronic kidney disease, unspecified; G40.909 Epilepsy, unspecified, not intractable, without status epilepticus; R33.9 Retention of urine, unspecified; K59.09 Other constipation; Z95.0 Presence of cardiac pacemaker; H54.7 Unspecified visual loss; N42.9 Disorder of prostate, unspecified; Z79.82 Long term (current) use of aspirin; Z88.5 Allergy status to narcotic agent; R09.02 Hypoxemia; R50.9 Fever, unspecified
CPT/HCPCS: 36415; 71045 ×2; 80053; 80162; 81001; 82550; 83605; 85025; 96360; 99285; J7050; J7120 ×2; 51702; 51703; 70450; 70450-26; 72170; 72170-26; 80048; 85027; A9270-GY; J1630; J2543; J7030